=== PATIENT | female | born 1935 | race Caucasian/White ===

== ENCOUNTER 2016-09-01 11:02 | Outpatient (CLI) | payer MEDICARE, BC ==
[~2016-09-01] VITALS: Ht 157.6 cm; Wt 77.7 kg
[~2016-09-01 11:02] MED LIST: COLESTID 1GM1 G PO; HCTZ 25MG25 MG PO; LEVOTHYROXINE0.05 M1 PO; LODINE400 MG PO; PRINIVIL10 MG PO; TYLENOL 8 HR PO
[2016-09-01] MEDS ORDERED: SYNTHROID0.05 MG/TA PO (11:42)
[2016-09-01] MEDS ORDERED: HCTZ12.5TAB PO (11:42)
[2016-09-01] MEDS ORDERED: MULTI VITAMINS1 TAB PO (11:43)
[2016-09-01] MEDS ORDERED: INFANTS AQU400 IU/ML PO (11:43)
[2016-09-01] MEDS ORDERED: NATURE'S BLE1000 MCG PO (11:44)
[2016-09-01] MEDS ORDERED: OSCAL 500 TAB500 MG PO (11:45)
[2016-09-01] MEDS ORDERED: TYLENOL 500MG500 MG PO (11:46)
[2016-09-01 11:50] VITALS: BP 125/65; PULSE 80; TEMP 98.4
== END 2016-09-01 14:31 | disposition home or self-care (01) ==
LOC: COL.RAD 11:02
DX: Z53.9 Procedure and treatment not carried out, unspecified reason (principal)

== ENCOUNTER 2019-04-26 11:54 | Inpatient (IN) | payer MEDICARE, BC ==
[~2019-04-26] VITALS: Ht 160 cm; Wt 77.0 kg
[~2019-04-26 11:54] MED LIST changes: +HCTZ12.5TAB PO; +INFANTS AQU400 IU/ML PO; +MULTI VITAMINS1 TAB PO; +NATURE'S BLE1000 MCG PO; +OSCAL 500 TAB500 MG PO; +SYNTHROID0.05 MG/TA PO; +TYLENOL 500MG500 MG PO
[2019-04-26 12:48] LABS: BASO % 0.3 % (0.0-2.0); EOS % 0.3 % (0-4.0); GRAN # 2.6 (1.4-6.5); GRAN % 80.2 % (42.2-75.2); HEMATOCRIT 43.1 % (37.0-47.0); HEMOGLOBIN 13.6 g/dl (12.5-16.0); LYMPH # 0.5 (1.2-3.4); LYMPH % 14.6 % (20.0-51.0); MEAN CELL VOLUME 80 fl (80.0-100.0); MEAN CORPUSCULAR HEMOGLOBIN 25 pg (27.0-31.0); MEAN CORPUSCULAR HGB CONC 32 g/dl (33.0-37.0); MEAN PLATELET VOLUME 9.3 fl (7.4-10.4); MONO # 0.1 (0.1-0.6); MONO % 4.3 % (1.7-9.3); PLATELET COUNT 359 K/mm3 (130-400); REDCELL DISTRIBUTION WIDTH-CV 15.9 % (11.5-14.5)
[2019-04-26 13:01] LABS: ALBUMIN 3.3 gm/dL (3.5-5.0); BILIRUBIN,TOTAL 1.3 mg/dL (0.0-1.0); C-REACTIVE PROTEIN 1.2 mg/dL (0.0-0.9); CALCIUM 7.8 mg/dL (8.4-10.2); CREATININE, serum 0.85 (0.52-1.25); POTASSIUM 3.3 mmol/L (3.4-5.0); TOTAL PROTEIN 5.7 gm/dL (6.4-8.2)
[2019-04-26 18:30] VITALS: BP 97/52; PULSE 102; TEMP 98.3
--- NOTE | 2019-04-26 20:22 | NUR ---
Resting in bed. Assessment complete. Lungs clear. Heart sounds normal. Bowels active x4. Pulses strong throughout. Bilateral lower leg edema +1. Reports "a little" ABD pain at this time. No diarrhea since start of shift. IV left wrist/forearm area infusing without complications. All questions answered. Unable to give home medications. Will contact . Denies other needs at this time. Call light in reach.
[2019-04-26 21:25] VITALS: BP 76/58; PULSE 108
[2019-04-26 22:10] VITALS: BP 106/82; PULSE 102; TEMP 97.7
--- NOTE | 2019-04-26 22:10 | NUR ---
Patient arrived to ICU room 1 via medical bed. Patient was transferred to ICU bed and vitals were obtained. Initial vitals were within normal limits, however respiratory rate was 29. Patient arrived with a NS bolus hanging. Patient is in obvious pain, as she is gaurding abdomen and grimacing. Patient verbally confirmed pain present. Bedside report was provided by HAROLDO Knox.
--- NOTE | 2019-04-26 22:57 | NUR ---
2124: SPICE MILLER reports blood pressure 70s/40s to 60s. Manually taken at 76/58 with a apical pulse of 108. Patient reports ABD pain and weakness at this time. 2127: Notified JOHANA Marie. Reported patient symptoms. Fluid bolus x1 liter. Requested baseline EKG and telemetry, okay to order. 2134: Started fluid bolus and telemetry. Respiratory in room for EKG. Patient reports "I just feel so bad." Patient having increased left lower ABD tenderness at this time. Remained in room with patient for EKG. 2144: Cynthia in to see patient. Ordered transfer to ICU, stat labs, and stat CT ABD w/o. Patient transported to CT at this time. CT aware. 2155: Arrived at CT. 2204: Arrived to ICU. Patient transferred to ICU bed. 2219: Provided report to HAROLDO Mc while in ICU. Patient remained alert and orientated with compliants of ABD during transfer.
--- NOTE | 2019-04-26 23:08 | NUR ---
Attempted to contact regarding patient status/transfer to ICU and obtain med. red. No answer and unable to leave voicemail at this time.
--- NOTE | 2019-04-26 23:30 | NUR ---
Patient left for surgery at this time.
[2019-04-27] VITALS (1204 sets, daily range): BP systolic 92–126; BP diastolic 50–83; PULSE 98–121; TEMP 97.4–98.5; O2SAT 64–100
--- NOTE | 2019-04-27 02:30 | NUR ---
Patient returns from surgery at this time. Patient has leonard catheter, a LSC triple lumen central line, midline incision to abdomen that is dressed with guaze and clean, dry, and intact, as well as with ileostomy to the right lower abdomen. Patient's vitals are obtained upon arrival and are within normal limits. Patient has received an epidural REWRITE EDITOR that is running at 4 ml/hr per anesthesiologist. Patient is obviously experiencing discomfort as she is grimicing and verbally complains of pain. Vitals were obtained at regular intervals for the first 30 minutes after returning from surgery. Vitals remained within normal limits, although the patient's pulse slightly elevated from the 90s into the low 100s. Hospitalist notified of patient's return. Will continue to monitor.
[2019-04-27 03:12] LABS: HEMATOCRIT 38.2 % (37.0-47.0); HEMOGLOBIN 11.9 g/dl (12.5-16.0); MEAN CELL VOLUME 81 fl (80.0-100.0); MEAN CORPUSCULAR HEMOGLOBIN 25 pg (27.0-31.0); MEAN CORPUSCULAR HGB CONC 31 g/dl (33.0-37.0); MEAN PLATELET VOLUME 9.4 fl (7.4-10.4); PLATELET COUNT 288 K/mm3 (130-400); RED BLOOD COUNT 4.73 M/mm3 (4.10-5.30); REDCELL DISTRIBUTION WIDTH-CV 15.9 % (11.5-14.5)
[2019-04-27 03:18] LABS: INR 1.5 (0.8-3.0); PROTHROMBIN TIME 17.6 SECONDS (9.7-12.8)
[2019-04-27 03:20] LABS: ANION GAP 7 mmol/L (7-16); BLOOD UREA NITROGEN 23 mg/dL (7-17); CALCIUM 6.6 mg/dL (8.4-10.2); CARBON DIOXIDE 21 mmol/L (22-30); CHLORIDE 107 mmol/L (98-107); CREATININE, serum 0.78 (0.52-1.25); GLUCOSE 108 mg/dL (74-106); POTASSIUM 3.6 mmol/L (3.4-5.0); SODIUM 135 mmol/L (137-145)
[2019-04-27 03:31] LABS: ARTERIAL BLD GAS O2 SATURATION 98.6 % (92-100); ARTERIAL BLD GAS TCO2 CT 18.5; ARTERIAL BLOOD GAS BASE EXCESS -9.1 (-2-2); ARTERIAL BLOOD GAS HCO3 17.3 meq/L (22-26); ARTERIAL BLOOD GAS PCO2 39.3 mmHg (35-45); ARTERIAL BLOOD GAS PO2 141.4 mmHg (80-100); ARTERIAL BLOOD GAS pH 7.26 (7.35-7.45)
[2019-04-27 03:32] LABS: TROPONIN-I < 0.012 ng/mL (0.000-0.035)
[2019-04-27 03:57] LABS: ANISOCYTOSIS 1+; HYPOCHROMIA 2+; LYMPHOCYTE 11 % (20.0-51.0); NEUTROPHILS 2 % (42.0-75.2); PLATELET ESTIMATE NORMAL (NORMAL)
[2019-04-27 03:58] LABS: BURR CELLS 2+; TOXIC GRANULATION PRESENT
[2019-04-27 03:59] LABS: OVALOCYTES 1+
--- NOTE | 2019-04-27 04:51 | NUR ---
Patient pulled out NG tube. Dr. Gutierrez notified. Requested that NG tube be left out. Will continue to monitor.
[2019-04-27 06:02] LABS: HEMATOCRIT 38.7 % (37.0-47.0); HEMOGLOBIN 11.9 g/dl (12.5-16.0); MEAN CELL VOLUME 81 fl (80.0-100.0); MEAN CORPUSCULAR HEMOGLOBIN 25 pg (27.0-31.0); MEAN CORPUSCULAR HGB CONC 31 g/dl (33.0-37.0); MEAN PLATELET VOLUME 9.3 fl (7.4-10.4); PLATELET COUNT 269 K/mm3 (130-400); RED BLOOD COUNT 4.78 M/mm3 (4.10-5.30); REDCELL DISTRIBUTION WIDTH-CV 15.9 % (11.5-14.5)
[2019-04-27 06:20] LABS: ALBUMIN 1.9 gm/dL (3.5-5.0); CALCIUM 6.5 mg/dL (8.4-10.2); CREATININE, serum 0.77 (0.52-1.25); MAGNESIUM 1.4 mg/dL (1.6-2.3); POTASSIUM 3.7 mmol/L (3.4-5.0); TOTAL PROTEIN 3.8 gm/dL (6.4-8.2)
[2019-04-27 06:34] LABS: BAND 5 % (0-10); LYMPHOCYTE 5 % (20.0-51.0); NEUTROPHILS 87 % (42.0-75.2); PLATELET ESTIMATE NORMAL (NORMAL)
[2019-04-27 06:35] LABS: ANISOCYTOSIS 1+; BURR CELLS 1+; C-REACTIVE PROTEIN 16.8 mg/dL (0.0-0.9); HYPOCHROMIA 2+; OVALOCYTES 1+; TOXIC GRANULATION PRESENT
--- NOTE | 2019-04-27 07:00 | NUR ---
BEDSIDE REPORT RECEIVED FROM HAROLDO BAEZ. CARE TAKEN OVER AT THIS TIME.
--- NOTE | 2019-04-27 07:10 | NUR ---
Bedside report given to HAROLDO Mcgovern.
--- NOTE | 2019-04-27 08:33 | NUR ---
At approx. 0430, patient's pressures began to decrease and HR became elevated into the 1-teens. Hospitalist was notified, who then updated [facility]. A 1000mL bolus was ordered and administered. Pressures and HR responded appropriately. At approx. 0620, again the patient's pressures began to decrease with an elevated HR. A CVP line was initiated, with the initial reading being 9. A second 1000mL bolus was ordered and administered at 0635. Pressures and HR responded well and returned to normal ranges. CVP reading increased to 12-13. Will continue to monitor and evaluate patient.
--- NOTE | 2019-04-27 09:30 | NUR ---
ORDERS RECEIVED FOR 1 LITER LR BOLUS D/T HYPOTENSION. DR. KAMILA DAVIDSON HERE TO SEE PATIENT. OTHER ORDERS BEING PLACED.
--- NOTE | 2019-04-27 10:30 | NUR ---
BLOOD PRESSURE MUCH IMPROVED WITH THE HELP OF THE LR BOLUS. PATIENT RESTING IN BED WITH NO COMPLAINTS. WILL CONTINUE TO MONITOR.
--- NOTE | 2019-04-27 13:00 | NUR ---
, SYLVIA, HERE TO SEE PATIENT.
--- NOTE | 2019-04-27 13:30 | NUR ---
DR. ARRIETA HERE TO SEE PATIENT
--- NOTE | 2019-04-27 14:00 | NUR ---
ILEOSTOMY DEVICE CHANGED AT THIS TIME D/T LEAK. MIDLINE INCISION CLEANED AND REDRESSED AT THIS TIME WELL.
--- NOTE | 2019-04-27 16:26 | NUR ---
FINANCIAL ANALYSIS ADVISOR student met with the to discuss a discharge plan. The patient lives in [place] with her , Scott. The patient reports she does not use DME and is independent with ADLs. The patient's PCP is Dr. Cancino and patient receive medications from [facility]. The patient does not have advanced directives in the EMR but reports they are completed. The patient may need post acute rehab. The patient wanted to discuss it with her . FINANCIAL ANALYSIS ADVISOR student contacted the patient's , Scott. The first choice is [facility] and second choice is [facility]. FINANCIAL ANALYSIS ADVISOR student faxed updates and contacted both facilities. A patient choice form is in the patient's chart. FINANCIAL ANALYSIS ADVISOR student requested Scott bring DPOA-HC paperwork to put in the patient's chart. director of career services will continue to follow.
--- NOTE | 2019-04-27 16:30 | NUR ---
CLEAR ENSURE OFFERED TO THE PATIENT. BLOOD GLUCOSE CONTINUES TO RUN IN THE 70s. SHE IS ENCOURAGED TO DRINK THIS ALONG WITH THE ICE WATER SHE WANTED. SHE IS AGREEABLE TO DRINKING THE ENSURE.
--- NOTE | 2019-04-27 18:30 | NUR ---
, SYLVIA, HERE AGAIN TO SEE PATIENT. HE BRINGS DPOA PAPERWORK WITH HIM. COPIES MADE AND PLACED IN CHART.
--- NOTE | 2019-04-27 18:40 | NUR ---
EICU CALLED REGARDING LOW URINE OUTPUT, PERSISTENTLY ELEVATED HR OF 115. UPDATE ON OVERALL SITUATION GIVEN, INCLUDING BOLUSES GIVEN LAST NIGHT AND TODAY. WILL AWAIT ANY ORDERS.
--- NOTE | 2019-04-27 19:00 | NUR ---
BEDSIDE REPORT GIVEN TO HAROLDO PANTOJA. PATIENT HAS ELEVATED HR OF 180 AT THIS TIME. IT IS SUSTAINED BETWEEN 160-180 FOR APPROXIMATELY 20 OR SO SECONDS. PATIENT IS COACHED ON PERFORMING A VAGAL MANEUVER AND SHE RETURNS TO A SINUS TACHYCARDIA WITH RATE OF 115 ON AVERAGE. WILL CALL EICU WITH THIS EVENT.
--- NOTE | 2019-04-27 19:00 | NUR ---
Bedside report received from HAROLDO Mcgovern. Ostomy and surgical site assessed. Transfer of care at this time.
--- NOTE | 2019-04-27 19:05 | NUR ---
Patient has a rhythm change at this time to SVT with a rate between 160-180 bpm. Patient performs vagal maneuver and converts back to sinus rhythm. Patient was asymptomatic and BP remained stable and WNL.
--- NOTE | 2019-04-27 19:15 | NUR ---
RADHA STEWART APRN CALLED WITH CONSULT FOR OSTOMY TEACHING. SHE STATES SHE WILL BE HERE THIS EVENING TO SPEAK WITH AND PATIENT
--- NOTE | 2019-04-27 20:00 | NUR ---
Patient awake laying in bed with , Louis, at bedside. Patient complains of pain rated 3/10 in her abdomen. Educated patient on pushing her income tax return preparer button when she is hurting. Patient is alert and partially oriented. Unable to tell month, day or reason for being here. Assessment complete. Lungs are clear bilaterally with diminished bases. HR and rhythm are regular with normal S1 and S2 heard. Bowel sounds in upper quads are audible with lower quads being hypoactive. Patient is passing gas through the ostomy as well as dark green liquid stool with mucus. Pulses are palpable in all extremities. Surgical dressing remains clean and dry. No evidence of leakage around ileostomy. Patient has no further needs at this time. Will continue to monitor. Call light within reach.
--- NOTE | 2019-04-27 20:35 | NUR ---
Jl, ostomy nurse, at the bedside at this time. Unable to do teaching as is no longer present and patient is unable to retain information. She will contact tomorrow to set up time for Tuesday for teaching.
[2019-04-28] VITALS (1017 sets, daily range): BP systolic 94–130; BP diastolic 49–68; PULSE 94–108; TEMP 97.4–98.1; O2SAT 64–100
--- NOTE | 2019-04-28 | NUR ---
Patient asleep but awakens easily. Patient is still confused and does not realise she has had surgery. No complaints of pain. Assessment complete with no changes from previous exam. Vitals obtained and remain within normal limits. Patient's urine output has started to spanish moss picker since bolus. No further needs at this time. Will continue to monitor. Call light within reach.
--- NOTE | 2019-04-28 04:00 | NUR ---
Patient asleep and awakens easily. No complaints of pain. She remains confused, but pleasant. Assessment complete with only change being that ileostomy output is now more brown than green as it was previously in the shift. Vitals obtained and remain stable. Patient's urine output continues to increase slowly. Will continue to monitor. Call light within reach.
[2019-04-28 04:47] LABS: MEAN CELL VOLUME 81 fl (80.0-100.0); MEAN CORPUSCULAR HGB CONC 32 g/dl (33.0-37.0); MEAN PLATELET VOLUME 9.9 fl (7.4-10.4); PLATELET COUNT 172 K/mm3 (130-400); RED BLOOD COUNT 3.74 M/mm3 (4.10-5.30); REDCELL DISTRIBUTION WIDTH-CV 16.5 % (11.5-14.5)
[2019-04-28 04:51] LABS: HEMATOCRIT 30.2 % (37.0-47.0); HEMOGLOBIN 9.6 g/dl (12.5-16.0); MEAN CORPUSCULAR HEMOGLOBIN 26 pg (27.0-31.0)
[2019-04-28 04:57] LABS: ALBUMIN 2.1 gm/dL (3.5-5.0); BILIRUBIN,TOTAL 0.5 mg/dL (0.0-1.0); CALCIUM 7.4 mg/dL (8.4-10.2); CREATININE, serum 0.76 (0.52-1.25); MAGNESIUM 2.4 mg/dL (1.6-2.3); POTASSIUM 3.5 mmol/L (3.4-5.0); TOTAL PROTEIN 4.1 gm/dL (6.4-8.2)
[2019-04-28 06:07] LABS: BAND 47 % (0-10); BURR CELLS 2+; LYMPHOCYTE 7 % (20.0-51.0); NEUTROPHILS 40 % (42.0-75.2); OVALOCYTES 2+
[2019-04-28 06:08] LABS: HYPOCHROMIA 1+; PLATELET ESTIMATE NORMAL (NORMAL)
--- NOTE | 2019-04-28 07:25 | NUR ---
Report recieved from Mary ZARCO. Patient awakens easily, alert but confused. Knows date and person, doesn't know location until told she's in the hospital. Call light at side, Epidural CLINICAL DOCUMENT IMPROVEMENT EDUCATOR button at side.
--- NOTE | 2019-04-28 07:25 | NUR ---
Bedside report given to HAROLDO Espinoza
--- NOTE | 2019-04-28 14:39 | NUR ---
F/U: SW met with patient as request. Patient is still unsure of where she wishes to go, between [facility] or [facility]. Patient did requested for someone to speak with her Scott ([phone]), however this did not seem to be an adaquate number. This SW [facility], however had not seen the patient yet, and so could not secure placement. ELHAM faxed updated to both facilities as requested.
--- NOTE | 2019-04-28 18:19 | NUR ---
Zach Mcneill ENGRAVER COPPERPLATE here to see patient and check on epidural status. Increased epidural at this time to basal of 6ml/hr and a demand of 3ml/hr. Will follow up with patient in AM
--- NOTE | 2019-04-28 19:25 | NUR ---
Received bedside report from Olga Donalsdon RN. Pt resting in bed with corrective eye glasses in place. Denies any current pain.
--- NOTE | 2019-04-28 19:30 | NUR ---
Bedside report given to Irene ZARCO. Epidural reviewed. Medications verified. Patient denies needs, denies pain at this time.
[2019-04-29] VITALS (460 sets, daily range): BP systolic 125–136; BP diastolic 58–78; PULSE 84–104; TEMP 97.6–100.1; O2SAT 89–97
[2019-04-29 05:13] LABS: MEAN CELL VOLUME 79 fl (80.0-100.0); MEAN CORPUSCULAR HGB CONC 32 g/dl (33.0-37.0); MEAN PLATELET VOLUME 10.1 fl (7.4-10.4); PLATELET COUNT 169 K/mm3 (130-400); RED BLOOD COUNT 3.56 M/mm3 (4.10-5.30); REDCELL DISTRIBUTION WIDTH-CV 17.1 % (11.5-14.5)
[2019-04-29 05:18] LABS: HEMOGLOBIN 8.9 g/dl (12.5-16.0); MEAN CORPUSCULAR HEMOGLOBIN 25 pg (27.0-31.0)
[2019-04-29 05:28] LABS: ALBUMIN 2.1 gm/dL (3.5-5.0); BILIRUBIN,TOTAL 0.6 mg/dL (0.0-1.0); CALCIUM 7.2 mg/dL (8.4-10.2); CREATININE, serum 0.49 (0.52-1.25); POTASSIUM 3.4 mmol/L (3.4-5.0); TOTAL PROTEIN 4.1 gm/dL (6.4-8.2)
[2019-04-29 05:44] LABS: ANISOCYTOSIS 1+; HYPOCHROMIA 2+; LYMPHOCYTE 4 % (20.0-51.0); NEUTROPHILS 91 % (42.0-75.2); PLATELET ESTIMATE NORMAL (NORMAL)
[2019-04-29 05:45] LABS: BURR CELLS 1+; MICROCYTOSIS 1+; OVALOCYTES 1+
--- NOTE | 2019-04-29 06:35 | NUR ---
Report recieved from HAROLDO Bonilla. Patient resting in bed and denies pain at this time. Epidural site with dried drainage to insertion site. Distal loop of epidural tubing uncovered secondary to occlusive dressing being rolled up. Site cleaned and reinforced with tegaderm. Midline insicion CDI and stoma beefy and red and without complication. MIVF running at ordered rate, amiodarone running at 0.5mg/min and potassium replacement running also as ordered. Care assumed.
--- NOTE | 2019-04-29 06:35 | NUR ---
Report provided to Laura Henderson RN.
--- NOTE | 2019-04-29 08:50 | NUR ---
Dr. Mark rounds at this time. Orders as entered CPOE.
--- NOTE | 2019-04-29 09:01 | NUR ---
Dr. Rueda rounds at this time. VORB to start PO amiodarone as entered. Care ongoing.
--- NOTE | 2019-04-29 11:39 | NUR ---
hired worker faxed medical updates to [facility] ([phone][facility] ([phone][facility] including facesheet, nursing/progress notes/cardiology notes, and medications.
--- NOTE | 2019-04-29 12:57 | NUR ---
Patient transported to surgical room 343 via with all belongings sent. HAROLDO Trujillo transfers patient. Prior report called to HAROLDO Rossi.
--- NOTE | 2019-04-29 15:00 | NUR ---
SEE SHIFT ASSESSMENT NOTE.
--- NOTE | 2019-04-29 19:00 | NUR ---
REPORT RECEIVED FROM HAROLDO AVILA; CARE OF PT ASSUMED AT THIS TIME. BEDSIDE ROUNDS COMPLETED, PT DENIES NEEDS AT THIS TIME. CALL LIGHT WITHIN REACH.
--- NOTE | 2019-04-29 19:34 | NUR ---
REPORT GIVEN TO HAROLDO BELL.
--- NOTE | 2019-04-29 21:00 | NUR ---
PT AWAKE, ALERT, OX4 APPROPRIATELY AT THIS TIME. PT REPORTS BEING FORGETFUL AND HAS "TROUBLE WITH MEMORY." PT DENIES PAIN, HAS EPIDURAL INFUSING CURRENTLY. GOOD CSM TO BLE'S, WARM TO TOUCH. IVF INFUSING PER CENTRAL LINE TO L SUBCLAVIAN WITHOUT ISSUES, SITE WITHOUT REDNESS, EDEMA. PERIPHERAL SITES TO L AC AND L FA ALSO, SOME EDEMA TO L AC AREA WITHOUT REDNESS, PT DENIES TENDERNESS TO AREA. ILEOSTOMY TO RLQ INTACT WITH BEEFY RED STOMA, DRAINAGE IS YELLOW COLORED AND SEEDY, EMPTIED 350ML AT THIS TIME. PT TAMERA ANY PAIN TO AREA. SURGICAL INCISION MIDLINE, VERTICAL TO ABDOMEN IS COVERED WITH GAUZE DRESSING AND HAS SMALL AMOUNT OF DRIED DARK DRAINAGE NOTED, NO ACTIVE DRAINAGE. PT REPOSITIONED TO LEFT SIDE WITH PILLOW PLACED UNDER R HIP AND PILLOW UNDER HEELS TO FLOAT OFF BED. PT AGREEABLE TO POSITION CHANGES. WEISS CATHETER IN PLACE, DRAINING YELLOW, CLEAR URINE. PT DENIES ANY NEEDS AT THIS TIME. CALL LIGHT WITHIN REACH.
--- NOTE | 2019-04-29 22:45 | NUR ---
CALL RECIEVED FROM ICU REGARDING PT HR TACHY UP TO 140'S. CHECKED ON PT IN ROOM, SLEEPING IN BED. AWAKENED PT EASILY, APICAL PULSE FOUND TO BE 118BPM CURRENTLY. PT DENIES ANY CP, SOB, PALPITATIONS, OR RACING OF HEART, DENIES PAIN. INSTRUCTED PT TO CALL FOR RN IF STARTS TO FEEL SYMPTOMS. PT IS AGREEABLE. CALL LIGHT WITHIN REACH.
[2019-04-30] VITALS (7 sets, daily range): BP systolic 101–132; BP diastolic 52–69; PULSE 87–983; TEMP 97.3–100.1
[2019-04-30 05:44] LABS: BASO % 0.1 % (0.0-2.0); EOS % 0.5 % (0-4.0); GRAN # 7.3 (1.4-6.5); GRAN % 88.6 % (42.2-75.2); LYMPH # 0.3 (1.2-3.4); LYMPH % 3.3 % (20.0-51.0); MEAN CELL VOLUME 79 fl (80.0-100.0); MEAN CORPUSCULAR HGB CONC 33 g/dl (33.0-37.0); MEAN PLATELET VOLUME 9.4 fl (7.4-10.4); MONO # 0.6 (0.1-0.6); MONO % 6.7 % (1.7-9.3); PLATELET COUNT 140 K/mm3 (130-400); RED BLOOD COUNT 3.37 M/mm3 (4.10-5.30); REDCELL DISTRIBUTION WIDTH-CV 17.2 % (11.5-14.5)
[2019-04-30 05:46] LABS: HEMATOCRIT 26.5 % (37.0-47.0); HEMOGLOBIN 8.6 g/dl (12.5-16.0); MEAN CORPUSCULAR HEMOGLOBIN 26 pg (27.0-31.0)
[2019-04-30 05:59] LABS: BILIRUBIN,TOTAL 0.7 mg/dL (0.0-1.0); CREATININE, serum 0.47 (0.52-1.25); MAGNESIUM 1.7 mg/dL (1.6-2.3); POTASSIUM 3.6 mmol/L (3.4-5.0); TOTAL PROTEIN 4.1 gm/dL (6.4-8.2)
--- NOTE | 2019-04-30 06:10 | NUR ---
PT HAS SLEPT WELL THROUGH THE NIGHT WITH NO C/O PAIN OR OTHER ISSUES. REPOSITIONED Q2 HOURS WITH PILLOWS PLACED FOR COMFORT AND HEELS FLOATED. NO SKIN ISSUES NOTED. WEISS CATHETER DRAINING CLEAR RODRIGUEZ URINE. SCD'D IN PLACE BILAT. ILEOSTOMY HAS BEEN DRAINING LOOSE YELLOW, SEEDY STOOL AND APPEARS TO HAVE FLATUS NOTED IN BAG. DRESSING TO ABDOMEN REMAINS CDI. IVF INFUSING TO CENTRAL LINE WITHOUT ISSUE. TEMPERATURE SLIGHTLY ELEVATED THIS AM AT 100.1 DEGREES, PT DENIES FEELING BAD. DENIES OTHER NEEDS. CALL LIGHT WITHIN REACH.
--- NOTE | 2019-04-30 07:03 | NUR ---
REPORT GIVEN TO HAROLDO ELLIOTT; BEDSIDE ROUNDS COMPLETED, PT DENIES NEEDS. CALL LIGHT WTIHIN REACH.
--- NOTE | 2019-04-30 08:30 | NUR ---
Patient in bed resting. Alert and oriented x 3. Shift assessment complete. Midline incision with gauze scant drainage present,appears old. Ostomy to right quadrant appliance intact, having some liquid stool output. Stoma appears beefy red. Central line to left subclavian without difficulties. Denies pain or further needs at this time.
--- NOTE | 2019-04-30 10:42 | NUR ---
Notified Cecilia VAUGHN of increased HR in 160's
--- NOTE | 2019-04-30 11:39 | NUR ---
Blanche, ostomy nurse in with patient
--- NOTE | 2019-04-30 11:42 | NUR ---
Notified Dr. Mark of increased HR at 160's
[2019-04-30 13:29] LABS: COLLECTION METHOD CLEAN CATCH
--- NOTE | 2019-04-30 13:36 | NUR ---
Javed from [facility] reports they can accept the patient for a [facility] stay. ELHAM informed the patient and attempted to contact the patient's . Scott, . ELHAM will attempt at a later time. ELHAM will continue to follow.
--- NOTE | 2019-04-30 13:45 | NUR ---
ELHAM faxed updates to Javed at [facility]. ELHAM will continue to follow.
--- NOTE | 2019-04-30 13:48 | NUR ---
Patient's , Scott talley#
[2019-04-30 13:57] LABS: MUCOUS Present /lpf; PH 5 (5-8); SQUAMOUS EPITHELIAL 0-2 /hpf; URINE APPEARANCE Hazy; URINE BACTERIA None Seen /hpf; URINE BILIRUBIN Negative (NEGATIVE); URINE BLOOD 3+ (NEGATIVE); URINE COLOR Yellow; URINE GLUCOSE Negative (NEGATIVE); URINE KETONE Negative (NEGATIVE); URINE LEUKOCYTE ESTERASE Negative (NEGATIVE); URINE NITRATE Negative (NEGATIVE); URINE PROTEIN(semi-quant) 1+ (NEGATIVE); URINE RBC >50 /hpf; URINE UROBILINOGEN Negative (NEGATIVE); URINE WBC 0-2 /hpf
--- NOTE | 2019-04-30 14:05 | NUR ---
Notified Cecilia VAUGHN, patients HR is 140's while working with physical therapy. Now decreased to 112 while sitting in recliner.
--- NOTE | 2019-04-30 15:39 | NUR ---
Notified Cecilia VAUGHN, patients HR increased to 150's
--- NOTE | 2019-04-30 16:25 | NUR ---
Notified Cecilia corral. Patient HR in 160's. Attempted to contact cardiology.
--- NOTE | 2019-04-30 16:30 | NUR ---
Discontinued leonard catheter, kyung care provided. Patient tolerated procedure well. Assisted patient to bed. Denies pain or further needs at this time.
--- NOTE | 2019-04-30 18:59 | NUR ---
Patient has done well throughout the day. Epidural and leonard catheter out. Denies pain at this time. Continues to have good output from ostomy. Denies further needs at this time. Reprted off to paralegal legal secretary.
--- NOTE | 2019-05-01 04:13 | NUR ---
Patient has rested well throughout the night. Denies any pain. No PRN medication given this shift. Ileostomy appliance had a leak, so this was changed at the beginning of the shift. No leaks apparent at this time. Good output noted from ileostomy. Will continue to monitor patient.
[2019-05-01 06:00] VITALS: BP 115/63; PULSE 85; TEMP 97.6
[2019-05-01 06:19] LABS: MEAN CELL VOLUME 79 fl (80.0-100.0); MEAN CORPUSCULAR HGB CONC 32 g/dl (33.0-37.0); MEAN PLATELET VOLUME 10.1 fl (7.4-10.4); PLATELET COUNT 129 K/mm3 (130-400); RED BLOOD COUNT 3.63 M/mm3 (4.10-5.30); REDCELL DISTRIBUTION WIDTH-CV 17.6 % (11.5-14.5)
[2019-05-01 06:36] LABS: CALCIUM 7.1 mg/dL (8.4-10.2); CREATININE, serum 0.42 (0.52-1.25); MAGNESIUM 1.9 mg/dL (1.6-2.3); POTASSIUM 4.1 mmol/L (3.4-5.0)
[2019-05-01 06:58] LABS: HEMATOCRIT 28.8 % (37.0-47.0); HEMOGLOBIN 9.2 g/dl (12.5-16.0); MEAN CORPUSCULAR HEMOGLOBIN 25 pg (27.0-31.0)
[2019-05-01 07:00] VITALS: BP 109/75; PULSE 84; TEMP 97.8
[2019-05-01 07:29] LABS: BAND 1 % (0-10); EOSINOPHIL 2 % (0-4); LYMPHOCYTE 6 % (20.0-51.0); NEUTROPHILS 85 % (42.0-75.2); PLATELET ESTIMATE NORMAL (NORMAL)
[2019-05-01 07:30] LABS: ANISOCYTOSIS 2+
--- NOTE | 2019-05-01 08:30 | NUR ---
Patient in bed resting. BESSEMER CONVERTER OPERATOR student with patient. Ileostomy leaking, bed bath provided, Ostomy appliance changed out. Midline dressing soiled from ostomy, changed dressing. Denbo intact with edges well approximated. Patient Denies pain at this time. BLE edema noted, Assisted patient to recliner. SCDs to BLE. Central line to left subclavian without complications. Denies further needs at this time.
--- NOTE | 2019-05-01 09:17 | NUR ---
Shift assessment complete. Bilateral lower extremity edema present at +1. Fine crackles at base of lungs. Central line intact, INT intact on left wrist. Ileostomy changed this morning, dressing changed this morning. Pt. tolerated both well. Telemetry in place. No pain at this time
[2019-05-01 10:45] VITALS: BP 115/60; PULSE 95; TEMP 98.6
--- NOTE | 2019-05-01 11:19 | NUR ---
Report off to Mary ZARCO
[2019-05-01 16:13] VITALS: BP 113/64; PULSE 85; TEMP 98.2
[2019-05-01] MEDS ORDERED: PACERONE400 MG PO (17:54)
[2019-05-01] MEDS ORDERED: LOPRESSOR 225 MG/TAB PO (17:55)
[2019-05-01] MEDS ORDERED: TYLENOL 325MG325 MG PO (17:56)
[2019-05-01] MEDS ORDERED: NORCO 325 MG-51 TAB PO (17:57)
--- NOTE | 2019-05-01 19:06 | NUR ---
Patient has done well throughout the day. Patient continues to have good output from ostomy. SCDs on throughout the day, BLE elevated due to edema. Continues to deny pain. Denies further needs at this time. Reported off to review rn.
[2019-05-01 21:00] VITALS: BP 117/55; PULSE 85; TEMP 98
[2019-05-02] VITALS (7 sets, daily range): BP systolic 97–118; BP diastolic 56–70; PULSE 57–83; TEMP 97.8–98.5
--- NOTE | 2019-05-02 02:08 | NUR ---
Patient has rested well tonight. Denies any pain. Ileostomy appliance changed d/t it leaking. Output is moderate in size and green in color. Midline incision covered with gauze and CDI. Coccyx appears to be red, but blanchable. Patient assisted in repositioning. Noted to be incontinent of urine. Will continue to monitor patient.
--- NOTE | 2019-05-02 06:45 | NUR ---
Reported on to Mary ZARCO.
--- NOTE | 2019-05-02 07:00 | NUR ---
Shift assessment complete. Posterior tibial pulses audible with doppler. Central line intact, INT in place, ileostomy bag intact, small amount of green liquid stool noted, emptied bag. Crackles at base of lungs, upper lobes clear to auscultation. SCD's applied. Patient states no pain at this time. Patient shows good appetite.
[2019-05-02 08:47] LABS: MEAN CELL VOLUME 80 fl (80.0-100.0); MEAN CORPUSCULAR HGB CONC 32 g/dl (33.0-37.0); MEAN PLATELET VOLUME 10.2 fl (7.4-10.4); PLATELET COUNT 126 K/mm3 (130-400); RED BLOOD COUNT 3.57 M/mm3 (4.10-5.30); REDCELL DISTRIBUTION WIDTH-CV 17.8 % (11.5-14.5)
[2019-05-02 08:51] LABS: CALCIUM 7.2 mg/dL (8.4-10.2); CREATININE, serum 0.45 (0.52-1.25); HEMATOCRIT 28.6 % (37.0-47.0); MEAN CORPUSCULAR HEMOGLOBIN 25 pg (27.0-31.0)
[2019-05-02 10:02] LABS: BAND 27 % (0-10); NEUTROPHILS 55 % (42.0-75.2); OVALOCYTES 1+; PLATELET ESTIMATE NORMAL (NORMAL)
--- NOTE | 2019-05-02 11:10 | NUR ---
lime kiln worker helper attended clinical rounds. Patient signed IM. Patient has been accepted to skilled care at [facility], however, will not transfer today due to blood clot in the leg. Worker contacted patient's spouse and Javed at [facility] and advised of the above information.
--- NOTE | 2019-05-02 11:39 | NUR ---
Report off to Mary ZARCO.
--- NOTE | 2019-05-02 13:41 | NUR ---
Assited patient back to bed. Midline incision soiled from ostomy. Yoli care provided. Denies further needs at this time.
--- NOTE | 2019-05-02 19:52 | NUR ---
Patient has done well throughout the day. Edema to LLE noted this AM, reported to hospitalist. Ostomy continues to have good output throughout the day. Midline incision with joseph intact, edges well approximated. Continues to deny pain. Patient has been up to comode throughout the day, stating she feels too weak to walk into restroom, steady gait with one assist and walker. Tolerating diet without difficulties. Denies further needs at this time. Reported off to nursing faculty.
--- NOTE | 2019-05-03 01:34 | NUR ---
PATIENT DOING WELL THROUGHOUT NIGHT. DENIES PAIN. OSTOMY CONTINUES TO HAVE GOOD OUTPUT. APPLIANCE IS NOT SOILED AND IS HOLDING WELL. MIDLINE INCISION CDI. LLE IS SWOLLEN AND PAINFUL TO TOUCH. L SUBCLAVIAN CENTRAL LINE FLUSHED AND PATENT. NO FURTHER NEEDS AT THIS TIME. WILL CONTINUE TO MONITOR.
[2019-05-03 05:17] VITALS: BP 100/56; PULSE 76; TEMP 97.9
[2019-05-03 06:09] LABS: HEMOGLOBIN 10.2 g/dl (12.5-16.0); MEAN CELL VOLUME 80 fl (80.0-100.0); MEAN CORPUSCULAR HEMOGLOBIN 25 pg (27.0-31.0); MEAN CORPUSCULAR HGB CONC 31 g/dl (33.0-37.0); MEAN PLATELET VOLUME 9.8 fl (7.4-10.4); PLATELET COUNT 189 K/mm3 (130-400); REDCELL DISTRIBUTION WIDTH-CV 17.7 % (11.5-14.5)
[2019-05-03 06:15] LABS: HEMATOCRIT 32.6 % (37.0-47.0)
[2019-05-03 06:20] LABS: CALCIUM 7.4 mg/dL (8.4-10.2); CREATININE, serum 0.46 (0.52-1.25); POTASSIUM 4.2 mmol/L (3.4-5.0)
[2019-05-03 06:49] LABS: BAND 31 % (0-10); EOSINOPHIL 2 % (0-4); LYMPHOCYTE 11 % (20.0-51.0); MYELOCYTE 1 % (0-0); NEUTROPHILS 52 % (42.0-75.2)
[2019-05-03 06:50] LABS: ANISOCYTOSIS 1+; MICROCYTOSIS 1+; PLATELET ESTIMATE NORMAL (NORMAL)
[2019-05-03 07:42] VITALS: BP 107/61; PULSE 79; TEMP 97.4
--- NOTE | 2019-05-03 08:58 | NUR ---
Shift report received by outgoing RN
--- NOTE | 2019-05-03 10:00 | NUR ---
AND TEAM AT BEDSIDE TO PLACE LOOP RECORDER
[2019-05-03] MEDS ORDERED: AMOXICILLIN 8751 TAB PO (11:37)
[2019-05-03] MEDS ORDERED: ELIQUIS 5MG PO (11:38)
[2019-05-03] MEDS ORDERED: ULTRAM 50MG TAB50 MG PO (11:41)
[2019-05-03 12:34] VITALS: BP 107/61; PULSE 79; TEMP 97.4
[2019-05-03 13:23] VITALS: BP 104/71; PULSE 93; TEMP 97.3
--- NOTE | 2019-05-03 13:35 | NUR ---
PATIENT'S OSTOMY LEAKED AND GOT ONTO MIDLINE DRESSING. STUDENT NURSE AND INSTRUCTOR REJI AT BEDSIDE TO CHANGE MIDLINE, APPLY NEW OSTOMY APPLIANCE & DC' LEFT SUBCLAVIAN IV FOR PENDING TRANSFER.
[2019-05-03 13:46] VITALS: BP 107/61; PULSE 79; TEMP 97.4
[2019-05-03 13:53] VITALS: BP 107/61; PULSE 79; TEMP 97.4
--- NOTE | 2019-05-03 14:04 | NUR ---
Guest is resting comfortably in bed. Guest's stoma has been cleaned and new appliance in place. Call light and bedside table is within reach.
--- NOTE | 2019-05-03 14:09 | NUR ---
Wind Energy Engineer collaborated with Beatriz ZARCO and Javed from [facility] to establish transportation as patient will discharge to [facility] this afternoon. [facility] transportation will cook pickled meat patient at 3:30pm and ELHAM advised Beatriz ZARCO of this information. ELHAM notified patient's , Scott about discharge plan and he was in agreeance. ELHAM Tavarez notified patient of discharge plan and she was inagreeance. ELHAM faxed discharge orders to [facility].
--- NOTE | 2019-05-03 14:14 | NUR ---
LS TL removed per protocol. Pressure held for 10 minutes. Covered with folded 2 x 2. Covered with tagaderm.
--- NOTE | 2019-05-03 15:44 | NUR ---
PATIENT DISCHARGING VIA WC WITH [facility]. CALLED REPORT TO [facility] NURSE. SENT INFO PACKET WITH PATIENT. STUDENT NURSE AND INSTRUCTOR DC'D IV ACCESS AND COVERED SITE WITH GAUZE & TEGA. MIDLINE DRESSING AND OSTOMY BAG CHANGED, WAFER INTACT. TELE DC'D. PATIENT DISCHARGED.
== END 2019-05-03 15:44 | DRG 853 ==
LOC: COL.ER 11:54 → SURG 16:06 → MEDICAL 16:06 → ICU 22:10 → SURG 04-29 12:55
PROVIDERS: Family Medicine; Hospitalist; Internal Medicine Critical Care Medicine; Nurse Practitioner Family; Physician Assistant; Student in an Organized Health Care Education/Training Program; ADMIT Internal Medicine
PROC: 0DNU0ZZ Release Omentum, Open Approach (ICD-10-PCS; 2019-04-27)
PROC: 0DTF0ZZ Resection of Right Large Intestine, Open Approach (ICD-10-PCS; 2019-04-27)
PROC: 0D1B0Z4 Bypass Ileum to Cutaneous, Open Approach (ICD-10-PCS; 2019-04-27)
PROC: 05H633Z Insertion of Infusion Device into Left Subclavian Vein, Percutaneous Approach (ICD-10-PCS; 2019-04-27)
PROC: 0JH632Z Insertion of Monitoring Device into Chest Subcutaneous Tissue and Fascia, Percutaneous Approach (ICD-10-PCS; principal; 2019-05-03)
DX: A41.9 Sepsis, unspecified organism (principal); R65.21 Severe sepsis with septic shock; K63.1 Perforation of intestine (nontraumatic); E87.1 Hypo-osmolality and hyponatremia; K56.7 Ileus, unspecified; K52.0 Gastroenteritis and colitis due to radiation; I82.402 Acute embolism and thrombosis of unspecified deep veins of left lower extremity; T50.8X5A Adverse effect of diagnostic agents, initial encounter; E87.6 Hypokalemia; D50.9 Iron deficiency anemia, unspecified; E83.42 Hypomagnesemia; E83.51 Hypocalcemia; E03.9 Hypothyroidism, unspecified; R00.0 Tachycardia, unspecified; I48.0 Paroxysmal atrial fibrillation; F03.90 Unspecified dementia, unspecified severity, without behavioral disturbance, psychotic disturbance, mood disturbance, and anxiety; I10 Essential (primary) hypertension; M85.80 Other specified disorders of bone density and structure, unspecified site; Z90.710 Acquired absence of both cervix and uterus; Z85.3 Personal history of malignant neoplasm of breast; Z92.3 Personal history of irradiation; Z88.2 Allergy status to sulfonamides
CPT/HCPCS: 99222-AI; 99232-AI; 99233-AI; 99239; A4314; A9284; C1751; C1764; J0282; J0610; J1650; J1956; J2185; J2270; J2370; J2405; J2543; J3010; J3475; J3480; J7030; J7050; J7060; J7120; P9047; Q9967

== ENCOUNTER → 2019-05-29 | Outpatient (CLI) | payer MEDICARE, BC ==
[~2019-05-29] MED LIST changes: +AMOXICILLIN 8751 TAB PO; +ELIQUIS 5MG PO; +LOPRESSOR 225 MG/TAB PO; +NORCO 325 MG-51 TAB PO; +PACERONE400 MG PO; +TYLENOL 325MG325 MG PO; +ULTRAM 50MG TAB50 MG PO
== END ==
LOC: ZLAB.STJ 10:02
DX: E03.9 Hypothyroidism, unspecified (principal)

== ENCOUNTER → 2019-06-04 | Outpatient (CLI) | payer MEDICARE, BC ==
[~2019-06-04] MED LIST changes: +CALCIUM 600 PLU1 TAB PO; +VITAMIN C500 MG PO
== END ==
LOC: COL.RAD 07:50
DX: R63.4 Abnormal weight loss (principal); Z98.890 Other specified postprocedural states; Z90.49 Acquired absence of other specified parts of digestive tract
CPT/HCPCS: Q9967

== ENCOUNTER 2019-06-06 10:39 | Inpatient (IN) | payer MEDICARE, BC ==
[2019-06-06] VITALS (223 sets, daily range): BP systolic 95–105; BP diastolic 60–65; PULSE 58–65; TEMP 97.7; O2SAT 75–100
[~2019-06-06] VITALS: Ht 157.5 cm; Wt 59.2 kg
[~2019-06-06 10:39] MED LIST changes: -CALCIUM 600 PLU1 TAB PO; -VITAMIN C500 MG PO
[2019-06-06 12:30] LABS: BASO % 0.2 % (0.0-2.0); GRAN # 13.3 (1.4-6.5); GRAN % 89.6 % (42.2-75.2); HEMOGLOBIN 14.4 g/dl (12.5-16.0); LYMPH # 0.6 (1.2-3.4); LYMPH % 4.1 % (20.0-51.0); MEAN CELL VOLUME 76 fl (80.0-100.0); MEAN CORPUSCULAR HEMOGLOBIN 25 pg (27.0-31.0); MEAN CORPUSCULAR HGB CONC 33 g/dl (33.0-37.0); MEAN PLATELET VOLUME 9.2 fl (7.4-10.4); MONO # 0.8 (0.1-0.6); MONO % 5.5 % (1.7-9.3); PLATELET COUNT 345 K/mm3 (130-400); RED BLOOD COUNT 5.81 M/mm3 (4.10-5.30); REDCELL DISTRIBUTION WIDTH-CV 15.6 % (11.5-14.5)
[2019-06-06 12:42] LABS: ALBUMIN 4.4 gm/dL (3.5-5.0); BILIRUBIN,TOTAL 1.2 mg/dL (0.0-1.0); CALCIUM 9.1 mg/dL (8.4-10.2); CREATININE, serum 2.48 (0.52-1.25); POTASSIUM 3.6 mmol/L (3.4-5.0); TOTAL PROTEIN 7.7 gm/dL (6.4-8.2)
[2019-06-06 12:55] LABS: TROPONIN-I 0.07 ng/mL (0.000-0.035)
[2019-06-06 13:03] LABS: MAGNESIUM 2.1 mg/dL (1.6-2.3)
[2019-06-06 13:35] LABS: COLLECTION METHOD CLEAN CATCH
[2019-06-06 13:54] LABS: HYALINE CAST >12 /lpf; MUCOUS Present /lpf; PH 5 (5-8); SQUAMOUS EPITHELIAL 0-2 /hpf; URINE APPEARANCE Hazy; URINE BACTERIA None Seen /hpf; URINE BILIRUBIN Negative (NEGATIVE); URINE BLOOD Negative (NEGATIVE); URINE COLOR Amber; URINE GLUCOSE Negative (NEGATIVE); URINE KETONE Negative (NEGATIVE); URINE LEUKOCYTE ESTERASE Negative (NEGATIVE); URINE NITRATE Negative (NEGATIVE); URINE PROTEIN(semi-quant) Negative (NEGATIVE); URINE UROBILINOGEN Negative (NEGATIVE)
--- NOTE | 2019-06-06 17:35 | NUR ---
Called Dr Tucker regarding increased troponin, new orders for IV amio recevied.
[2019-06-06] MEDS ORDERED: VITAMIN C500 MG PO (17:44)
[2019-06-06] MEDS ORDERED: CALCIUM 600 PLU1 TAB PO (17:45)
[2019-06-06] MEDS ORDERED: PACERONE400 MG PO (17:45)
[2019-06-06] MEDS ORDERED: TYLENOL 325MG325 MG PO (17:46)
[2019-06-06] MEDS ORDERED: LOPRESSOR 225 MG/TAB PO (17:46)
--- NOTE | 2019-06-06 17:46 | NUR ---
Vancomycin Initial Dosing Pharmacy Note Ordering provider: Sravanthi Watson W., MD Indication/duration: SEPSIS / 7 DAYS Relevant comorbidities: SMALL BOWEL PERF ONE MONTH AGO/ILEOSTOMY LABS: SCR 2.48/CRCL~13 BASE LINE SCR~0.7 Recommendation: 1GM Q12H Loading dose: Maintenance dose: 1 gram every 12 hours Trough goal: 15-20 ug/mL
[2019-06-06] MEDS ORDERED: SYNTHROID0.05 MG/TA PO (17:47)
[2019-06-06] MEDS ORDERED: MULTI VITAMINS1 TAB PO (17:47)
[2019-06-06] MEDS ORDERED: NATURE'S BLE1000 MCG PO (17:48)
[2019-06-06] MEDS ORDERED: ELIQUIS 5MG PO (17:48)
[2019-06-06] MEDS ORDERED: ULTRAM 50MG TAB50 MG PO (17:49)
--- NOTE | 2019-06-06 19:30 | NUR ---
Received report from HAROLDO Baca.
--- NOTE | 2019-06-06 19:32 | NUR ---
Report given to Jesusita ZARCO and care transfered.
[2019-06-06 21:21] LABS: CREATININE, serum 1.72 (0.52-1.25); SODIUM 126 mmol/L (137-145)
[2019-06-07] VITALS (715 sets, daily range): BP systolic 94–117; BP diastolic 52–66; PULSE 56–82; TEMP 97.5–98.3; O2SAT 58–100
[2019-06-07 07:21] LABS: BASO % 0.3 % (0.0-2.0); EOS # 0.2 (0.0-0.7); EOS % 1.9 % (0-4.0); GRAN # 7.6 (1.4-6.5); GRAN % 80.8 % (42.2-75.2); HEMOGLOBIN 12.8 g/dl (12.5-16.0); LYMPH % 10.3 % (20.0-51.0); MEAN CELL VOLUME 76 fl (80.0-100.0); MEAN CORPUSCULAR HEMOGLOBIN 25 pg (27.0-31.0); MEAN CORPUSCULAR HGB CONC 33 g/dl (33.0-37.0); MEAN PLATELET VOLUME 9.4 fl (7.4-10.4); MONO # 0.6 (0.1-0.6); MONO % 6.3 % (1.7-9.3); RED BLOOD COUNT 5.16 M/mm3 (4.10-5.30); REDCELL DISTRIBUTION WIDTH-CV 15.9 % (11.5-14.5)
[2019-06-07 07:22] LABS: ALANINE AMINOTRANSFERASE 82 U/L (9-52); ALBUMIN 3.3 gm/dL (3.5-5.0); ALKALINE PHOSPHATASE 100 U/L (50-136); AST,SGOT 62 U/L (15-37); BILIRUBIN,TOTAL 1.3 mg/dL (0.0-1.0); BLOOD UREA NITROGEN 71 mg/dL (7-17); CHOLESTEROL 99 mg/dL (120-200); CHOLESTEROL RISK RATIO 4.5; CREATININE, serum 1.49 (0.52-1.25); GLUCOSE 78 mg/dL (74-106); HDL CHOLESTEROL 22 mg/dL; LDL CHOLESTEROL 56 mg/dL; SODIUM 130 mmol/L (137-145); TRIGLYCERIDE 104 mg/dL
[2019-06-07 07:24] LABS: PLATELET COUNT 216 K/mm3 (130-400)
[2019-06-07 07:39] LABS: CHLORIDE 80 mmol/L (98-107); POTASSIUM 2.9 mmol/L (3.4-5.0); TROPONIN-I 0.066 ng/mL (0.000-0.035)
--- NOTE | 2019-06-07 08:16 | NUR ---
Report given to HAROLDO Espinoza, and HAROLDO Foster.
[2019-06-07 11:49] LABS: INR 1.2 (0.8-3.0); PROTHROMBIN TIME 14.5 SECONDS (9.7-12.8)
--- NOTE | 2019-06-07 12:00 | NUR ---
PATIENT RESTING COMFORT ABLE IN BED, WILL AMBULATE IN ROOM, OR USE OF RESTROOM WITH STAFF SUGGESTION ONLY NO VOLUNTEER RESPONSE FROM PATIENT
--- NOTE | 2019-06-07 13:44 | NUR ---
KARAN student met alexi the patient and the patient's /DPOA-HC, Scott to discuss a discharge plan. The patient was recently at [facility] for a [facility] stay. KARAN student presented the patient choice form to the patient and the patient's the first and only choice at this time is [facility]. The patient's /DPOA-HC signed the form. The patient has a walker. The patient's PCP is Dr. Cancino. The patient has advanced directives in the EMR. KARAN león faxed updates to Javed at [facility]. student services vice president will continue to follow.
--- NOTE | 2019-06-07 15:45 | NUR ---
after PICC placement chest x-ray reviewed catheter tip location noted. With sterile technique left upper arm PICC dressing change done with insertion site cleansed with ChloraPrep 1, catheter pulled back 5 cm to 4 cm marking on catheter, chlorhexidine impregnated disc applied, skin prep, StatLock, and Tegaderm applied. Primary care nurse informed.
--- NOTE | 2019-06-07 16:00 | NUR ---
PATIENT MOVES ABOUT BED EASILY, DENIES WEAKNESS OR DISINESS
--- NOTE | 2019-06-07 17:30 | NUR ---
PICC LINE BLEEDING UNDER DRESSING AT SITE, BLEEDING CONTROLLED REDRESSED, IN PICC LINE FASHION WITH MASK AND STERLE FIELD, WILL CONTINUE TO MONITOR AND REPORT TO ON COMING STAFF ABOUT BLEEDING
--- NOTE | 2019-06-07 19:35 | NUR ---
Bedside report received from HAROLDO Foster.
--- NOTE | 2019-06-07 20:00 | NUR ---
Patient awake and watching tv at this time. She is alert and partially oriented, can answer self and location correctly, but does not for year, month, and president. Assessment complete. Lungs are clear bilaterally with diminished bases. HR and rhythm are regular with normal S1 and S2 heard. Patient has active bowel sounds x4. Patient has Palpable peripheral pulses in all extremities. Patient has some clear green output from her ostomy. Stoma is beefy red. No complaints of pain. Has no current needs at this time. Will continue to monitor. Call light within reach.
[2019-06-08] VITALS (443 sets, daily range): BP systolic 92–120; BP diastolic 57–76; PULSE 64–74; TEMP 97.5–98.3; O2SAT 73–100
--- NOTE | 2019-06-08 | NUR ---
Patient sleeps between disturbances, but is mostly awake watching tv. Assisted patient up to bedside commode. Patient given a bath and linens changed. Assessment complete. No changes from previous exam. No complaints of pain. HAROLDO Segovia replaces PICC line dressing. No further needs at this time. Will continue to monitor. Call light within reach.
--- NOTE | 2019-06-08 01:15 | NUR ---
When getting patient back to bed from [facility], she was noted to have gross bleeding from her ostomy into the bag. Due to patient's increased hepxa levels we have been having problems controlling bleeding at her PICC site. Called and notified EICU, will continue to monitor for any continual or increased bleeding.
--- NOTE | 2019-06-08 04:00 | NUR ---
Patient awakens to name. Assessment complete. No changes from previous exams. Will continue to monitor. Call light within reach.
[2019-06-08 06:29] LABS: INR 1.3 (0.8-3.0); PROTHROMBIN TIME 14.8 SECONDS (9.7-12.8)
[2019-06-08 06:34] LABS: BASO % 0.2 % (0.0-2.0); EOS # 0.1 (0.0-0.7); GRAN # 8.2 (1.4-6.5); LYMPH # 0.7 (1.2-3.4); LYMPH % 6.8 % (20.0-51.0); MEAN CELL VOLUME 78 fl (80.0-100.0); MEAN CORPUSCULAR HGB CONC 32 g/dl (33.0-37.0); MEAN PLATELET VOLUME 9.3 fl (7.4-10.4); MONO # 0.6 (0.1-0.6); MONO % 6.5 % (1.7-9.3); PLATELET COUNT 198 K/mm3 (130-400); RED BLOOD COUNT 4.07 M/mm3 (4.10-5.30); REDCELL DISTRIBUTION WIDTH-CV 15.8 % (11.5-14.5)
[2019-06-08 06:36] LABS: ALBUMIN 2.7 gm/dL (3.5-5.0); BILIRUBIN,TOTAL 1.1 mg/dL (0.0-1.0); CALCIUM 7.3 mg/dL (8.4-10.2); TOTAL PROTEIN 5.1 gm/dL (6.4-8.2)
[2019-06-08 06:38] LABS: POTASSIUM 2.8 mmol/L (3.4-5.0)
[2019-06-08 06:45] LABS: HEMATOCRIT 31.8 % (37.0-47.0); HEMOGLOBIN 10.3 g/dl (12.5-16.0); MEAN CORPUSCULAR HEMOGLOBIN 25 pg (27.0-31.0)
--- NOTE | 2019-06-08 07:30 | NUR ---
Report received from Christy ZARCO and care resumed.
--- NOTE | 2019-06-08 07:55 | NUR ---
Bedside report given to HAROLDO Baca
[2019-06-08 08:44] LABS: IRON,SERUM 43 ug/dL (35-150)
[2019-06-08 08:53] LABS: TOTAL IRON BINDING CAPACITY 333 ug/dL (265-497)
--- NOTE | 2019-06-08 09:53 | NUR ---
Dr Watson in to see pt at this time.
--- NOTE | 2019-06-08 10:58 | NUR ---
KARAN león attended clinical rounds with the team. The patient is to start regular diet and move to medical floor this day. Javed from [facility] reports the patient will keep her room at [facility] for a couple of days. KARAN león faxed updates to Javed. services engineer will continue to follow.
--- NOTE | 2019-06-08 11:10 | NUR ---
Cardiology in to see pt at this time.
--- NOTE | 2019-06-08 15:11 | NUR ---
Report called to Kristy ZARCO on medical floor and pt taken by wheelchair to room 351.
--- NOTE | 2019-06-08 16:00 | NUR ---
PT ADMITTED TO FLOOR. SITTING IN RECLINER. NO NEEDS VOICED, IV INFUSING.
--- NOTE | 2019-06-09 01:38 | NUR ---
Patient up in recliner upon entering the room. Pleasant with staff. Fluids infusing to MINDI PICC. Ileostomy appliance and bag changed d/t appliance leaking. Stage II pressure ucler noted to left buttock. Old dressing removed and mepilex applied after site was cleansed with NS. Patient denies pain. Remains afebrile. Patient requires one assist for transfers. Noted to be continent of urine. Currently resting in bed. Will continue to monitor.
[2019-06-09 03:45] VITALS: BP 112/58; PULSE 98
[2019-06-09 07:48] LABS: BASO % 0.4 % (0.0-2.0); EOS # 0.2 (0.0-0.7); EOS % 2.9 % (0-4.0); GRAN # 6.4 (1.4-6.5); GRAN % 82.2 % (42.2-75.2); LYMPH # 0.6 (1.2-3.4); LYMPH % 7.5 % (20.0-51.0); MEAN CELL VOLUME 79 fl (80.0-100.0); MEAN CORPUSCULAR HGB CONC 31 g/dl (33.0-37.0); MEAN PLATELET VOLUME 9.5 fl (7.4-10.4); MONO # 0.5 (0.1-0.6); MONO % 6.6 % (1.7-9.3); PLATELET COUNT 173 K/mm3 (130-400); RED BLOOD COUNT 3.93 M/mm3 (4.10-5.30)
[2019-06-09 07:57] LABS: INR 1.3 (0.8-3.0); PROTHROMBIN TIME 14.8 SECONDS (9.7-12.8)
[2019-06-09 08:04] LABS: ALBUMIN 2.6 gm/dL (3.5-5.0); BILIRUBIN,TOTAL 0.8 mg/dL (0.0-1.0); CALCIUM 7.3 mg/dL (8.4-10.2); CREATININE, serum 1.98 (0.52-1.25); TOTAL PROTEIN 4.9 gm/dL (6.4-8.2)
[2019-06-09 08:20] LABS: HEMATOCRIT 31.1 % (37.0-47.0); HEMOGLOBIN 9.7 g/dl (12.5-16.0); MEAN CORPUSCULAR HEMOGLOBIN 25 pg (27.0-31.0)
--- NOTE | 2019-06-09 09:55 | NUR ---
PATIENT ASSESSMENT COMPLETED. SHE FEELS A LITTLE LIGHT HEADED. HELD BP MEDICATION THIS MORNING. ILIOSTOMY INTACT. DENIES PAIN FEELS WEAK. SHE REFUSES BREAKFAST ONLY ATE ONE BITE OF EGGS AND DRANK A GLASS OF WATER WITH MEDICATIONS. NO OTHER NEEDS AT THIS TIME.
[2019-06-09 09:57] VITALS: BP 106/61; PULSE 72; TEMP 97.6
[2019-06-09 12:27] VITALS: BP 99/51; PULSE 65; TEMP 97.9
--- NOTE | 2019-06-09 14:10 | NUR ---
changed iliostomy wafer and bag at this time. it was leaking. Tolerates well
[2019-06-09 16:31] VITALS: BP 119/73; PULSE 77; TEMP 97.6
--- NOTE | 2019-06-09 19:00 | NUR ---
REPORT RECEIVED FROM HAROLDO ARAMBULA. CARE OF PT ASSUMED AT THIS TIME. BEDSIDE ROUNDS COMPLETED AT THIS TIME, PT DENIES NEEDS. CALL LIGHT WITHIN REACH.
[2019-06-09 20:52] VITALS: BP 126/66; PULSE 73; TEMP 98.2
--- NOTE | 2019-06-09 22:00 | NUR ---
OSTOMY SITE FOUND TO BE LEAKING AROUND FLANGE AND FROM BAG. GREEN THICK, SEEDY STOOL NOTED. FLANGE AND BAG REMOVED, STOMA BEEFY RED WITH EXCORIATION NOTED AROUND STOMA EDGES. AREA CLEANED AND PAINTED WITH SKIN BARRIER PRIOR TO NEW FLANGE AND BAG APPLICATION. PT TOLERATED WELL. CALL LIGHT WITHIN REACH.
--- NOTE | 2019-06-09 22:00 | NUR ---
PT IS AWAKE, DISORIENTED PER NORMAL, CONVERSED VERY SLOWLY. PT STATES HER NAME AND BIRTHDATE, UNABLE TO STATE THE DATE OR PLACE. ILEOSTOMY TO RLQ OF ABDOMEN IS FOUND TO BE LEAKING. FLANGE AND BAG CHANGED AT THIS TIME. GREEN, SEEDY STOOL NOTED TO BE DRAINING WITH SOME GREEN, BROWN LIQUID STOOL NOTED ALSO. ALL LINENS AND PT GOWN CHANGED AT THIS TIME ALSO. CLEAN BRIEF PLACED ON PT. PT POSITIONED TO L SIDE WITH PILLOWS PLACED FOR COMFORT. PT GIVEN HER MEDICATIONS AT THIS TIME WITHOUT ISSUES. CALL LIGHT WITHIN REACH.
--- NOTE | 2019-06-09 23:00 | NUR ---
PT REPOSITIONED TO L SIDE WITH PILLOW PLACED TO BACK FOR COMFORT. CALL LIGHT WITHIN REACH.
[2019-06-10] VITALS: BP 100/53; PULSE 74; TEMP 98.4
--- NOTE | 2019-06-10 01:00 | NUR ---
PT REPOSITIONED TO R SIDE WITH PILLOW PLACED TO BACK FOR COMFORT. OSTOMY SITE CHECKED FOR LEAKING. CALL LIGHT WITHIN REACH.
--- NOTE | 2019-06-10 03:26 | NUR ---
PT REPOSITIONED TO L SIDE WITH PILLOW PLACED TO BACK FOR COMFORT. WARM BLANKET PROVIDED AT THIS TIME. CALL LIGHT WITHIN REACH. OSTOMY SITE CHECKED FOR LEAKING AND EMPTIED OF 300ML OF LIQUID FECES AT THIS TIME.
[2019-06-10 04:00] VITALS: BP 101/53; PULSE 68; TEMP 98.4
--- NOTE | 2019-06-10 05:00 | NUR ---
PT REPOSITIONED TO LAY ON BACK AT THIS TIME. CALL LIGHT WITHIN REACH.
--- NOTE | 2019-06-10 05:51 | NUR ---
PT HAS HAD A GOOD NIGHT, SLEPT WELL. PT HAS REMAINED DISORIENTED, ALTHOUGH IS PLEASANT AND REORIENTS EASILY. PT DENIES PAIN WHEN ASKED, DOES MOAN WITH DISCOMFORT WHEN TOUCHING HER ILEOSTOMY OR ABDOMEN NEAR STOMA. OSTOMY HAS BEEN DRAINING GREEN LIQUID STOOL WITH PARTICULATES. PT HAS BEEN REPOSITIONED Q2 HOURS THROUGH THE NIGHT TO PREVENT SKIN BREAKDOWN. IVF CONT TO INFUSE THROUGH PICC IN L UPPER ARM AT 7ML/HR. CALL LIGHT WITHIN REACH.
[2019-06-10 06:22] LABS: BASO % 0.1 % (0.0-2.0); EOS # 0.4 (0.0-0.7); EOS % 5.4 % (0-4.0); GRAN # 5.9 (1.4-6.5); GRAN % 78.4 % (42.2-75.2); LYMPH # 0.7 (1.2-3.4); LYMPH % 8.9 % (20.0-51.0); MEAN CELL VOLUME 80 fl (80.0-100.0); MEAN CORPUSCULAR HGB CONC 31 g/dl (33.0-37.0); MEAN PLATELET VOLUME 9.7 fl (7.4-10.4); MONO # 0.5 (0.1-0.6); MONO % 6.8 % (1.7-9.3); PLATELET COUNT 147 K/mm3 (130-400); RED BLOOD COUNT 3.78 M/mm3 (4.10-5.30)
[2019-06-10 06:33] LABS: HEMATOCRIT 30.1 % (37.0-47.0); HEMOGLOBIN 9.4 g/dl (12.5-16.0); MEAN CORPUSCULAR HEMOGLOBIN 25 pg (27.0-31.0)
[2019-06-10 06:36] LABS: ALBUMIN 2.4 gm/dL (3.5-5.0); BILIRUBIN,TOTAL 0.8 mg/dL (0.0-1.0); CALCIUM 7.4 mg/dL (8.4-10.2); CREATININE, serum 3.31 (0.52-1.25); MAGNESIUM 1.7 mg/dL (1.6-2.3); PHOSPHOROUS 2.7 mg/dL (2.5-4.5); POTASSIUM 3.3 mmol/L (3.4-5.0); TOTAL PROTEIN 4.8 gm/dL (6.4-8.2)
--- NOTE | 2019-06-10 07:16 | NUR ---
REPORT GIVEN TO HAROLDO ARAMBULA; BEDSIDE ROUNDS COMPLETED AT THIS TIME. CALL LIGHT WITHIN REACH.
[2019-06-10 07:47] VITALS: BP 109/58; PULSE 71; TEMP 97.6
--- NOTE | 2019-06-10 08:29 | NUR ---
PATIENT ASSESSMENT COMPLETED. SHE IS SLEEPY BUT ARROUSES TO VERBAL STIMULI. IVF INFUSING AT 100C/HR. DENIES ANY PAIN AT THIS TIME.
--- NOTE | 2019-06-10 10:00 | NUR ---
PATIENT DRESSING CHANGE TO COXXYX. SHE ALSO HAS A SMALL AREA ON THE RIGHT BUTTOCK. MEPILEX APPLIED TO THESE AREAS.
[2019-06-10 13:02] VITALS: BP 112/60; PULSE 69; TEMP 98.4
--- NOTE | 2019-06-10 15:57 | NUR ---
PATIENT ILIOSTOMY IS LEAKING AT THE SEAL. THIS WAS REPLACED. THE SURROUNDING AREA AROUND THE STOMA IS RED AND SORE. PATIENT TOLERATES WELL.
[2019-06-10 16:21] VITALS: BP 106/67; PULSE 78; TEMP 98
--- NOTE | 2019-06-10 20:10 | NUR ---
Shift assessment complete. Pt resting in bed, sleepy but easy to wake, a&o, cooperative c cares. Pt c/o nausea et pain to coccyx et under stoma dressing; PRN pain manager of medical. Pt denies any other c/o. PICC noted to L upper arm, patent c good blood return. Pt denies further needs. Call light in reach, bed alarm on. Will continue to monitor.
[2019-06-10 21:47] VITALS: BP 119/67; PULSE 77; TEMP 98.8
[2019-06-11] VITALS (7 sets, daily range): BP systolic 110–147; BP diastolic 51–76; PULSE 71–82; TEMP 97.5–98.5
[2019-06-11 05:43] LABS: BASO % 0.2 % (0.0-2.0); EOS # 0.4 (0.0-0.7); EOS % 3.9 % (0-4.0); GRAN # 7.6 (1.4-6.5); LYMPH # 0.5 (1.2-3.4); LYMPH % 5.9 % (20.0-51.0); MEAN CELL VOLUME 80 fl (80.0-100.0); MEAN CORPUSCULAR HGB CONC 31 g/dl (33.0-37.0); MEAN PLATELET VOLUME 9.6 fl (7.4-10.4); MONO # 0.5 (0.1-0.6); MONO % 5.6 % (1.7-9.3); PLATELET COUNT 143 K/mm3 (130-400); REDCELL DISTRIBUTION WIDTH-CV 16.6 % (11.5-14.5)
[2019-06-11 05:46] LABS: HEMATOCRIT 32.1 % (37.0-47.0); HEMOGLOBIN 9.9 g/dl (12.5-16.0); MEAN CORPUSCULAR HEMOGLOBIN 25 pg (27.0-31.0)
[2019-06-11 06:00] LABS: CALCIUM 7.5 mg/dL (8.4-10.2); CREATININE, serum 4.51 (0.52-1.25); POTASSIUM 4.3 mmol/L (3.4-5.0)
--- NOTE | 2019-06-11 07:16 | NUR ---
appears to be sleeping, makes audible sound when name is called but does not open her eyes, ileostomy with large amount liquid stool in bag and emptied at this time
--- NOTE | 2019-06-11 08:05 | NUR ---
full assessment completed, see interventions for further info, is very sleepy but does arouse, ileostomy wafer intact without leaking and has liquid stool in bag, has 1cm stage II pressure ulcer to right buttock, mepiplex dressing over cocyx, has healing midline incision,
--- NOTE | 2019-06-11 09:00 | NUR ---
awake and opening her eyes, takes sips of water without difficulty, am meds given, STUDY SPECIALIST in to assist her with eaating breakfast
--- NOTE | 2019-06-11 09:29 | NUR ---
PATIENT OBSERVER assisted her with eating, SHANNAN states she appeared to have difficulty swallowing pancakes even though they were moist with syrup, will continue to monitor
--- NOTE | 2019-06-11 10:30 | NUR ---
PICC intact left upper arm. Small amount of bloody drainage noted. Gauze noted underneath dressing. With sterile technique left upper arm PICC dressing change done with insertion site cleansed with ChloraPrep 1, chlorhexidine impregnated disc applied, skin prep, StatLock, and Tegaderm applied. No further drainage noted. No signs or symptoms of IV complications noted. Patient with no concerns voiced.
--- NOTE | 2019-06-11 10:50 | NUR ---
up to bedside commode with myself and GARDENING INSTRUCTOR and she did void and UA sent, then back to bed, mepiplex dressing to cocyx removed has approx 2cm stage II ulcer to cocyx, covered with foam dressing and new foam dressing placed to left buttock ulcer, she was able to take a few short steps while getting up bedside commode
[2019-06-11 11:02] LABS: COLLECTION METHOD CATHETER
[2019-06-11 11:41] LABS: MUCOUS Present /lpf; PH 6 (5-8); SQUAMOUS EPITHELIAL 0-2 /hpf; URINE APPEARANCE Cloudy; URINE BACTERIA Occasional /hpf; URINE BILIRUBIN Negative (NEGATIVE); URINE BLOOD 3+ (NEGATIVE); URINE COLOR Yellow; URINE GLUCOSE 1+ (NEGATIVE); URINE KETONE Trace (NEGATIVE); URINE LEUKOCYTE ESTERASE Trace (NEGATIVE); URINE NITRATE Negative (NEGATIVE); URINE PROTEIN(semi-quant) 1+ (NEGATIVE); URINE RBC >50 /hpf; URINE UROBILINOGEN Negative (NEGATIVE)
--- NOTE | 2019-06-11 11:45 | NUR ---
awake now and following instructions for neuro checks,
--- NOTE | 2019-06-11 11:48 | NUR ---
ELHAM contacted and faxed updates to [facility]. SW to continue to follow.
--- NOTE | 2019-06-11 13:40 | NUR ---
in to visit and is asssiting her with eating lunch, she does arouse and opens her eyes and then goes back to sleep
--- NOTE | 2019-06-11 14:27 | NUR ---
with much encouragement took approx 200ml ensure
--- NOTE | 2019-06-11 15:13 | NUR ---
in bed and appears to sleep, arouses when her name is called, when try to give her a sip of water at first she refuses and then will take a sip from the straw
--- NOTE | 2019-06-11 16:30 | NUR ---
entered room to check on patient and ileostomy is now leaking copius amounts, new wafer placed with assistance of HAROLDO Canela and is not leaking at this time, complete linen change and incontinent care provided, bedside shift report given to HAROLDO Foster
--- NOTE | 2019-06-11 20:20 | NUR ---
Shift assessment complete. Pt resting in bed, sleepy but easy to wake, oriented to person/place, cooperative c cares. Pt continued c/o to back et buttock ulcer; PRN pain remedial reading teacher at this time. Pt denies any other c/o. PICC noted to L upper arm, patent c good blood return. Illeostomy noted, bag in place et occlusive at this time. Pt denies needs. Call light in reach, bed alarm on. Will continue to monitor.
[2019-06-12 03:30] VITALS: BP 154/90; PULSE 74
[2019-06-12 05:44] LABS: BASO % 0.1 % (0.0-2.0); EOS # 0.5 (0.0-0.7); EOS % 5.8 % (0-4.0); GRAN # 7.3 (1.4-6.5); GRAN % 83.4 % (42.2-75.2); LYMPH # 0.5 (1.2-3.4); LYMPH % 5.2 % (20.0-51.0); MEAN CELL VOLUME 80 fl (80.0-100.0); MEAN CORPUSCULAR HGB CONC 31 g/dl (33.0-37.0); MEAN PLATELET VOLUME 9.9 fl (7.4-10.4); MONO # 0.4 (0.1-0.6); PLATELET COUNT 124 K/mm3 (130-400); RED BLOOD COUNT 3.89 M/mm3 (4.10-5.30); REDCELL DISTRIBUTION WIDTH-CV 16.8 % (11.5-14.5)
[2019-06-12 05:57] LABS: ALBUMIN 2.4 gm/dL (3.5-5.0); BILIRUBIN,TOTAL 0.8 mg/dL (0.0-1.0); CALCIUM 7.7 mg/dL (8.4-10.2); CREATININE, serum 5.63 (0.52-1.25); POTASSIUM 4.2 mmol/L (3.4-5.0); TOTAL PROTEIN 4.9 gm/dL (6.4-8.2)
[2019-06-12 06:24] LABS: HEMATOCRIT 31.2 % (37.0-47.0); HEMOGLOBIN 9.8 g/dl (12.5-16.0); MEAN CORPUSCULAR HEMOGLOBIN 25 pg (27.0-31.0)
[2019-06-12 07:43] VITALS: BP 179/95; PULSE 74; TEMP 97.9
--- NOTE | 2019-06-12 08:40 | NUR ---
Pt not very responsive this morning, would not open her eyes but did respond when asked questions, shift assessment complete, left Pt call light in reach, bed in lowest position, alarm on.
[2019-06-12 11:39] VITALS: BP 119/66; PULSE 74; TEMP 97.8
--- NOTE | 2019-06-12 15:35 | NUR ---
ELHAM contacted and faxed updates to [facility]. SW to continue to follow.
[2019-06-12 15:40] VITALS: BP 118/56; PULSE 77; TEMP 97.9
--- NOTE | 2019-06-12 18:42 | NUR ---
Pt has been resting in the room, she will respond to questions cynthiah yes / no answers, leonard catheter inserted this afternoon @ about 1515 with immediate output of 700ml of dark carlos urine, since insertion output has been very little 10-15ml still dark carlos, Pt tolerated the insertion well. Pt has not taken much fluid by mouth during the day. VS have remained stable.
[2019-06-12 20:09] VITALS: BP 117/57; PULSE 78; TEMP 97.9
--- NOTE | 2019-06-12 20:20 | NUR ---
Shift assessment complete. Pt resting in bed, sleepy but easy to wake, responsive to verbal stimuli but has only very short responses. Pt responds "yes" when asked about pain, unable to elaborate other than "so much pain", pt also grimaces int et yells out c any movement; PRN pain medical health researcher. PICC noted to L upper arm, patent c good blood return from both ports. Illeostomy noted, exoriation around site from previous large amounts of stool, no other complications, appliance C/D/I at this time. Judd to DD, min amount dark carlos urine noted. Pt s further needs at this time. Call light in reach, bed alarm on. Will continue to monitor.
[2019-06-12 23:55] VITALS: BP 111/55; PULSE 80; TEMP 98.5
[2019-06-13 03:11] VITALS: BP 112/59; PULSE 86; TEMP 98.4
[2019-06-13 06:01] LABS: BASO % 0.2 % (0.0-2.0); EOS # 0.3 (0.0-0.7); EOS % 3.7 % (0-4.0); GRAN # 7.4 (1.4-6.5); GRAN % 86.7 % (42.2-75.2); LYMPH # 0.4 (1.2-3.4); LYMPH % 4.6 % (20.0-51.0); MEAN CELL VOLUME 81 fl (80.0-100.0); MEAN CORPUSCULAR HGB CONC 31 g/dl (33.0-37.0); MEAN PLATELET VOLUME 9.7 fl (7.4-10.4); MONO # 0.4 (0.1-0.6); MONO % 4.4 % (1.7-9.3); PLATELET COUNT 139 K/mm3 (130-400); RED BLOOD COUNT 3.83 M/mm3 (4.10-5.30); REDCELL DISTRIBUTION WIDTH-CV 16.9 % (11.5-14.5)
[2019-06-13 06:06] LABS: INR 1.3 (0.8-3.0); PROTHROMBIN TIME 14.8 SECONDS (9.7-12.8)
[2019-06-13 06:16] LABS: CALCIUM 7.5 mg/dL (8.4-10.2); CREATININE, serum 2.08 (0.52-1.25); POTASSIUM 3.4 mmol/L (3.4-5.0)
[2019-06-13 06:24] LABS: HEMATOCRIT 30.9 % (37.0-47.0); HEMOGLOBIN 9.6 g/dl (12.5-16.0); MEAN CORPUSCULAR HEMOGLOBIN 25 pg (27.0-31.0)
[2019-06-13 07:53] VITALS: BP 149/74; PULSE 83; TEMP 98.1
--- NOTE | 2019-06-13 09:00 | NUR ---
Assessment completed, drowsy but arousable, patient is not very verbal but is able to shake head "Yes/no", she is currently NPO for dialysis cath placement today, creat actually improved to 2 and i have notified nephrologoy who is considering canceling dialysis cath placement, illeosotmy is patent with stool noted in bag, leonard cath in place with some clear yellow urine, postion changes frewquently as patient has stgII to coccyx/ dressing is C/D/I, will continue to monitor
[2019-06-13 11:15] VITALS: BP 126/66; PULSE 78; TEMP 97.5
--- NOTE | 2019-06-13 15:35 | NUR ---
ELHAM contacted and faxed updates to [facility]. SW to continue to follow.
[2019-06-13 16:21] VITALS: BP 112/59; PULSE 74; TEMP 97.4
--- NOTE | 2019-06-13 19:14 | NUR ---
Patients Illeosotmy was leaking and I have changed out the appliance and bag, skin prep aapplied, positiong changed and dinner offered but refused by patient
[2019-06-13 20:37] VITALS: BP 113/60; PULSE 79; TEMP 98.8
--- NOTE | 2019-06-13 21:00 | NUR ---
Patient assessed at this time. Alert and oriented. Staff anticipates needs. Answers yes and no questions. Denies pain and discomfort. PICC to LUE. Denies SOB and dyspnea. LS CTA upper lobes, diminished lower lobes. Respirations shallow, even, and unlabored. HRR. Telemetry in place-NS. BSA. Illeostomy-brown liquid stools. Indwelling leonard catheter draining clear yellow urine via dependent drainage. 1+ edema BUE and BLE. Voices no questions, needs, or concerns at this time. Staff repositions in bed. Dressing to ulcer to coccyx is CDI. Resting in bed with call light within reach.
[2019-06-13 23:50] VITALS: BP 111/59; PULSE 76; TEMP 97.4
[2019-06-14 04:30] VITALS: BP 129/70; PULSE 80; TEMP 97.5
--- NOTE | 2019-06-14 05:48 | NUR ---
Patient resting in bed with eyes closed at this time. Denies having pain and discomfort when asked. Staff continues to anticipate needs, and assists with repositioning in bed. Illeostomy bag changed once during the night due to leaking. Resting in bed with eyes closed at this time. Call light is within reach.
[2019-06-14 06:08] LABS: BASO % 0.2 % (0.0-2.0); EOS # 0.3 (0.0-0.7); EOS % 5.4 % (0-4.0); GRAN # 4.7 (1.4-6.5); HEMATOCRIT 28.8 % (37.0-47.0); LYMPH # 0.6 (1.2-3.4); LYMPH % 9.1 % (20.0-51.0); MEAN CELL VOLUME 82 fl (80.0-100.0); MEAN CORPUSCULAR HEMOGLOBIN 26 pg (27.0-31.0); MEAN CORPUSCULAR HGB CONC 31 g/dl (33.0-37.0); MEAN PLATELET VOLUME 9.8 fl (7.4-10.4); MONO # 0.4 (0.1-0.6); MONO % 6.6 % (1.7-9.3); PLATELET COUNT 153 K/mm3 (130-400); RED BLOOD COUNT 3.51 M/mm3 (4.10-5.30)
[2019-06-14 06:27] LABS: CALCIUM 7.5 mg/dL (8.4-10.2); CREATININE, serum 0.88 (0.52-1.25); POTASSIUM 3.6 mmol/L (3.4-5.0)
[2019-06-14 07:39] VITALS: BP 121/61; PULSE 63; TEMP 97.9
--- NOTE | 2019-06-14 10:13 | NUR ---
Patient is laying in bed, I speak to her and she only nods. Did ask if she would take her medications and she shook her head no. I did ask if she would later and she nodded yes. I did explain to her that there was heart medications in there. She did not acknowledge that. She did squeeze hands but was uninterested in particpating in the rest of the neuro checks, she just shook her head no. She continues to lay in bed with head turned to the left. Does have call light and personal belongings within reach.
[2019-06-14 11:46] VITALS: BP 110/60; PULSE 69; TEMP 98.1
--- NOTE | 2019-06-14 18:30 | NUR ---
Patient was non-verbal most of the shift. Would shake her head yes or no and answer appropriately. Did hear her say words a few times. She did have a conversation when speaking with the provider during rounds when he said he may discharge her tomorrow. She agreed to sit up in the recliner and is resting there. Call light and personal items are within reach.
[2019-06-14 19:10] VITALS: BP 114/67; PULSE 88; TEMP 98.6
--- NOTE | 2019-06-14 19:45 | NUR ---
Patient alert and oriented x 4. Talking and smiling. Sitting up in recliner at this time. Denies having pain and discomfort. PICC to LUE. Denies SOB and dyspnea. LS CTA in upper lobes, diminished in lower. Respirations shallow, even, and unlabored. HRI. Telmetry in place-A-fib rate control. BSA. Illeostomy present, with brown, liquid stool. Indwelling leonard catheter in place, draining clear carlos urine via dependent drainage. No edema. Voices no questions, needs, or concerns at this time. Resting in recliner with call light within reach.
[2019-06-14 23:13] VITALS: BP 118/96; PULSE 85; TEMP 98.5
[2019-06-15 06:02] LABS: BASO % 0.4 % (0.0-2.0); EOS # 0.3 (0.0-0.7); EOS % 4.1 % (0-4.0); GRAN # 5.4 (1.4-6.5); GRAN % 74.1 % (42.2-75.2); LYMPH % 13.7 % (20.0-51.0); MEAN CELL VOLUME 83 fl (80.0-100.0); MEAN CORPUSCULAR HGB CONC 30 g/dl (33.0-37.0); MEAN PLATELET VOLUME 9.7 fl (7.4-10.4); MONO # 0.5 (0.1-0.6); MONO % 7.3 % (1.7-9.3); PLATELET COUNT 193 K/mm3 (130-400); RED BLOOD COUNT 3.91 M/mm3 (4.10-5.30); REDCELL DISTRIBUTION WIDTH-CV 16.6 % (11.5-14.5)
[2019-06-15 06:07] LABS: HEMATOCRIT 32.5 % (37.0-47.0); HEMOGLOBIN 9.8 g/dl (12.5-16.0); MEAN CORPUSCULAR HEMOGLOBIN 25 pg (27.0-31.0)
[2019-06-15 06:15] LABS: CALCIUM 8.2 mg/dL (8.4-10.2); CREATININE, serum 0.71 (0.52-1.25); POTASSIUM 4.2 mmol/L (3.4-5.0)
--- NOTE | 2019-06-15 07:02 | NUR ---
Patient was more talkative tonight than she was on Tuesday night. Did respond and talk with this nurse each time she was checked on. Smiling. Voices no questions, needs, or concerns at this time. Resting in bed with call light within reach. Staff assists with repositioning during nightly rounds.
[2019-06-15 07:32] VITALS: BP 114/59; PULSE 83; TEMP 98
--- NOTE | 2019-06-15 10:36 | NUR ---
Patient is awake in bed, opens eyes to speech. States she has no pain. Took medications in applesauce, did chew all medications. Patient had no issue neurologically been following commands appropriately. Respirations are even and nonlabored. Call light and personal items are within reach.
[2019-06-15] MEDS ORDERED: ZOLOFT 25MG25 MG PO (11:23)
[2019-06-15 12:04] VITALS: BP 140/73; PULSE 77; TEMP 97.7
--- NOTE | 2019-06-15 12:51 | NUR ---
ILEOSTOMY HAD LEAKED AND LOOSENED FROM THE SKIN. POUCH AND ADHESIVE WERE REMOVED, SKIN CARE WAS PROVIDED, MODERATE AMOUNT OF STOOL WAS IN POUCH AND BED. AREA WAS PREPPED AND WAFER APPLIED. TOLERATED WELL. STATLOCK FOR WEISS WAS CHANGED IT WAS SOILED. LINENS, CHUCKS AND GOWN REPLACED. PATIENT IS CURRENTLY RESTING COMFORTABLY IN BED.
--- NOTE | 2019-06-15 13:51 | NUR ---
The patient is to discharge today, 06/15, to [place] [facility] for a skilled stay. Transportation was scheduled for 1530, via [facility]. ELHAM informed the patient, patient's RN, and the patient's via phone. They were all in agreeance to the time. ELHAM also explained the IM form to the patient's , via phone. The patient's gave SW his verbal consent and the patient was provided a copy. No additional needs at this time.
--- NOTE | 2019-06-15 16:25 | NUR ---
Patient discharged home to [facility]. Prior to discharge ileostomy appliance was changed due to leakage. Area cleansed, skin prepped, powder applied and adhesive cream applied. Appliance cut to 1 1/8 in circumference. Patient did grimace as the area around the stoma was reddened and irritated. Report called to nurse at the residential. Did speak with her regarding this and she stated it was an off again, off again problem for her. She left facility at 1614 with facility transportation.
== END 2019-06-15 16:14 | DRG 871 ==
LOC: COL.ER 10:39 → MEDICAL 13:55 → ICU 13:55 → MEDICAL 06-08 16:22
PROVIDERS: Family Medicine; Nurse Practitioner; Nurse Practitioner Family; Physician Assistant; Student in an Organized Health Care Education/Training Program; ADMIT Student in an Organized Health Care Education/Training Program
PROC: 02HV33Z Insertion of Infusion Device into Superior Vena Cava, Percutaneous Approach (ICD-10-PCS; 2019-06-07)
PROC: 02PYX3Z Removal of Infusion Device from Great Vessel, External Approach (ICD-10-PCS; principal; 2019-06-15)
DX: A41.9 Sepsis, unspecified organism (principal); E43 Unspecified severe protein-calorie malnutrition; I21.A1 Myocardial infarction type 2; N17.9 Acute kidney failure, unspecified; Z66 Do not resuscitate; E87.1 Hypo-osmolality and hyponatremia; E87.3 Alkalosis; Z68.1 Body mass index [BMI] 19.9 or less, adult; E87.2 Acidosis; I47.2 Ventricular tachycardia; N13.30 Unspecified hydronephrosis; R55 Syncope and collapse; R74.8 Abnormal levels of other serum enzymes; F03.90 Unspecified dementia, unspecified severity, without behavioral disturbance, psychotic disturbance, mood disturbance, and anxiety; E03.9 Hypothyroidism, unspecified; I10 Essential (primary) hypertension; E87.8 Other disorders of electrolyte and fluid balance, not elsewhere classified; I48.91 Unspecified atrial fibrillation; E87.6 Hypokalemia; E16.2 Hypoglycemia, unspecified; M85.80 Other specified disorders of bone density and structure, unspecified site; D50.9 Iron deficiency anemia, unspecified; R23.3 Spontaneous ecchymoses; F32.9 Major depressive disorder, single episode, unspecified; Z86.718 Personal history of other venous thrombosis and embolism; Z90.710 Acquired absence of both cervix and uterus; Z85.3 Personal history of malignant neoplasm of breast; Z90.49 Acquired absence of other specified parts of digestive tract; Z79.01 Long term (current) use of anticoagulants; Z88.2 Allergy status to sulfonamides; Z93.2 Ileostomy status
CPT/HCPCS: 99223-AI; 99231-AI; 99232-AI; A4216; A9500; C1751; J0282; J0692; J1644; J2785; J3370; J3480; J7030; J7040; J7050; J7060; J7070

== ENCOUNTER 2019-07-09 18:00 | Inpatient (IN) | payer MEDICARE, BC ==
[~2019-07-09] VITALS: Ht 160 cm; Wt 67.0 kg
[~2019-07-09 18:00] MED LIST changes: +CALCIUM 600 PLU1 TAB PO; +VITAMIN C500 MG PO; +ZOLOFT 25MG25 MG PO
[2019-07-09 19:39] LABS: BASO % 0.3 % (0.0-2.0); EOS % 0.1 % (0-4.0); GRAN % 87.6 % (42.2-75.2); LYMPH # 0.8 (1.2-3.4); MEAN CELL VOLUME 75 fl (80.0-100.0); MEAN CORPUSCULAR HEMOGLOBIN 26 pg (27.0-31.0); MEAN CORPUSCULAR HGB CONC 34 g/dl (33.0-37.0); MEAN PLATELET VOLUME 9.3 fl (7.4-10.4); MONO # 0.7 (0.1-0.6); MONO % 5.2 % (1.7-9.3); PLATELET COUNT 190 K/mm3 (130-400); RED BLOOD COUNT 5.87 M/mm3 (4.10-5.30); REDCELL DISTRIBUTION WIDTH-CV 17.5 % (11.5-14.5)
[2019-07-09 19:49] LABS: ALBUMIN 4.4 gm/dL (3.5-5.0); BILIRUBIN,TOTAL 1.4 mg/dL (0.0-1.0); C-REACTIVE PROTEIN 0.9 mg/dL (0.0-0.9); CALCIUM 9.4 mg/dL (8.4-10.2); CREATININE, serum 5.71 (0.52-1.25); TOTAL PROTEIN 7.7 gm/dL (6.4-8.2)
[2019-07-09 20:12] LABS: COLLECTION METHOD CLEAN CATCH
[2019-07-09 20:22] LABS: SQUAMOUS EPITHELIAL None Seen /hpf; URINE BACTERIA None Seen /hpf; URINE RBC None Seen /hpf
[2019-07-09 20:29] LABS: PH 7 (5-8); URINE APPEARANCE Turbid; URINE BILIRUBIN Negative (NEGATIVE); URINE BLOOD Negative (NEGATIVE); URINE COLOR Amber; URINE GLUCOSE Negative (NEGATIVE); URINE KETONE Negative (NEGATIVE); URINE LEUKOCYTE ESTERASE 3+ (NEGATIVE); URINE NITRATE Negative (NEGATIVE); URINE PROTEIN(semi-quant) 2+ (NEGATIVE); URINE UROBILINOGEN Negative (NEGATIVE)
[2019-07-09 22:08] LABS: ARTERIAL BLD GAS O2 SATURATION 96.3 % (92-100); ARTERIAL BLD GAS TCO2 CT 36.1; ARTERIAL BLOOD GAS BASE EXCESS 10.4 (-2-2); ARTERIAL BLOOD GAS HCO3 34.7 meq/L (22-26); ARTERIAL BLOOD GAS PCO2 45.1 mmHg (35-45); ARTERIAL BLOOD GAS PO2 87.8 mmHg (80-100)
[2019-07-10] VITALS (424 sets, daily range): BP systolic 74–117; BP diastolic 47–78; PULSE 61–88; TEMP 97.1–98.1; O2SAT 79–100
--- NOTE | 2019-07-10 00:22 | NUR ---
Received report from HAROLDO Shelby.
--- NOTE | 2019-07-10 00:36 | NUR ---
Patient arrives to ICU room 1 via ED stretcher. Patient is transferred via turning sheet into ICU bed. Patient is alert although not oriented except for to person. Initial vitals are within normal limits. Skin issues are noted as follows, a stage 3 ulcer to the left upper portion of coccyx, a blister to the lower left buttock, irritation to the anus with scant bleeding, a skin tear to right upper arm, and a bruise to the left foot. Patient arrives with levophed infusing to the MINDI at 0.1 mcg/kg/min and NS running at 200 mL/hour. 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 At arrival, the ileostomy is leaking through dressing. Dressing is removed to find skin surrounding stoma irritated and with scant bleeding. Clean dressing and drainage bag are applied. Patient denies any pain or discomfort at this time. Deedee notified of patient's arrival. Will continue to monitor.
[2019-07-10 01:13] LABS: CALCIUM 7.7 mg/dL (8.4-10.2); CREATININE, serum 4.35 (0.52-1.25); POTASSIUM 4.1 mmol/L (3.4-5.0)
[2019-07-10 06:17] LABS: BASO % 0.2 % (0.0-2.0); EOS # 0.1 (0.0-0.7); EOS % 0.6 % (0-4.0); GRAN # 13.6 (1.4-6.5); GRAN % 86.6 % (42.2-75.2); LYMPH # 0.9 (1.2-3.4); LYMPH % 5.8 % (20.0-51.0); MEAN CELL VOLUME 78 fl (80.0-100.0); MEAN CORPUSCULAR HGB CONC 33 g/dl (33.0-37.0); MEAN PLATELET VOLUME 9.1 fl (7.4-10.4); MONO % 6.4 % (1.7-9.3); RED BLOOD COUNT 4.26 M/mm3 (4.10-5.30); REDCELL DISTRIBUTION WIDTH-CV 16.8 % (11.5-14.5)
[2019-07-10 06:28] LABS: CALCIUM 7.7 mg/dL (8.4-10.2); CREATININE, serum 3.87 (0.52-1.25); MAGNESIUM 1.5 mg/dL (1.6-2.3); PHOSPHOROUS 5.3 mg/dL (2.5-4.5); POTASSIUM 3.7 mmol/L (3.4-5.0)
[2019-07-10 06:34] LABS: HEMATOCRIT 33.4 % (37.0-47.0); MEAN CORPUSCULAR HEMOGLOBIN 26 pg (27.0-31.0); PLATELET COUNT 339 K/mm3 (130-400)
--- NOTE | 2019-07-10 07:52 | NUR ---
Report given to HAROLDO Cruz.
--- NOTE | 2019-07-10 10:32 | NUR ---
Senior It Architect attended clinical rounds with the team. SW then met with patient to discuss discharge planning. Patient states she lives at [facility]. Patient could not remember the name of her primary care physician. ELHAM contacted patient's , Scott (ph#[phone]) who confirmed patient lives at [facility] and sees Dr. Cancino for primary care. Patient has Advance Directives designating Scott in the EMR. ELHAM reviewed patient choice form with Scott who states he would like for patient to return to [facility] and provided verbal consent on choice form. ELHAM placed form on chart. ELHAM contacted Javed at [facility] and faxed referral. SW to continue to follow.
[2019-07-10 14:06] LABS: CREATININE, serum 3.4 (0.52-1.25)
--- NOTE | 2019-07-10 14:14 | NUR ---
To CT acc by Radiology staff via bed
[2019-07-10 15:39] LABS: INR 1.3 (0.8-3.0); PROTHROMBIN TIME 15.7 SECONDS (9.7-12.8)
--- NOTE | 2019-07-10 16:26 | NUR ---
Discussed patient with Diandra/ortho patient unlikely surgical candidate at this time, current imaging indicates fracture of left hip is not displaced. Radiology notified of order for xray of left hip. If INSTALLER INSPECTOR FINAL not in tonight, Dr Tavarez will see tomorrow AM.
[2019-07-11] VITALS (876 sets, daily range): BP systolic 91–104; BP diastolic 51–62; PULSE 55–67; TEMP 97–98.2; O2SAT 54–100
[2019-07-11 05:29] LABS: BASO % 0.3 % (0.0-2.0); EOS # 0.2 (0.0-0.7); EOS % 2.8 % (0-4.0); GRAN # 5.2 (1.4-6.5); GRAN % 79.4 % (42.2-75.2); LYMPH # 0.8 (1.2-3.4); LYMPH % 11.5 % (20.0-51.0); MEAN CELL VOLUME 82 fl (80.0-100.0); MEAN CORPUSCULAR HGB CONC 32 g/dl (33.0-37.0); MEAN PLATELET VOLUME 8.8 fl (7.4-10.4); MONO # 0.4 (0.1-0.6); MONO % 5.5 % (1.7-9.3); REDCELL DISTRIBUTION WIDTH-CV 17.1 % (11.5-14.5)
[2019-07-11 05:38] LABS: ALBUMIN 2.3 gm/dL (3.5-5.0); BILIRUBIN,TOTAL 0.9 mg/dL (0.0-1.0); CALCIUM 7.4 mg/dL (8.4-10.2); CREATININE, serum 2.22 (0.52-1.25); MAGNESIUM 1.8 mg/dL (1.6-2.3); PHOSPHOROUS 3.5 mg/dL (2.5-4.5); TOTAL PROTEIN 4.6 gm/dL (6.4-8.2)
[2019-07-11 06:35] LABS: HEMATOCRIT 27.8 % (37.0-47.0); HEMOGLOBIN 8.8 g/dl (12.5-16.0); MEAN CORPUSCULAR HEMOGLOBIN 26 pg (27.0-31.0); PLATELET COUNT 184 K/mm3 (130-400)
[2019-07-11 12:36] LABS: PARTIAL THROMBOPLASTIN TIME 26.8 SECONDS (26.0-37.0)
--- NOTE | 2019-07-11 19:10 | NUR ---
Received report from HAROLDO Muniz.
--- NOTE | 2019-07-11 21:00 | NUR ---
Patient is resting quietly in bed. No complaints of pain or discomfort at this time. Vitals within normal limits. Upon assessment, patient's ileostomy is leaking and dressing is saturated with stool. A new dressing and collection bag is placed. Patient's stoma is pink and moist, however, the surrounding skin is excoriated and some bleeding is noted. Will continue to monitor.
[2019-07-12] VITALS (396 sets, daily range): BP systolic 90–113; BP diastolic 51–85; PULSE 63–80; TEMP 97.6–98.4; O2SAT 83–100
[2019-07-12 05:46] LABS: BASO % 0.3 % (0.0-2.0); EOS # 0.3 (0.0-0.7); EOS % 3.9 % (0-4.0); GRAN # 5.4 (1.4-6.5); GRAN % 74.1 % (42.2-75.2); LYMPH # 1.1 (1.2-3.4); LYMPH % 14.7 % (20.0-51.0); MEAN CELL VOLUME 83 fl (80.0-100.0); MEAN CORPUSCULAR HGB CONC 32 g/dl (33.0-37.0); MEAN PLATELET VOLUME 9.1 fl (7.4-10.4); MONO # 0.5 (0.1-0.6); MONO % 6.6 % (1.7-9.3); PLATELET COUNT 181 K/mm3 (130-400); RED BLOOD COUNT 3.21 M/mm3 (4.10-5.30)
[2019-07-12 05:52] LABS: CALCIUM 7.4 mg/dL (8.4-10.2); CREATININE, serum 1.47 (0.52-1.25); POTASSIUM 3.7 mmol/L (3.4-5.0)
[2019-07-12 06:16] LABS: HEMATOCRIT 26.6 % (37.0-47.0); HEMOGLOBIN 8.4 g/dl (12.5-16.0); MEAN CORPUSCULAR HEMOGLOBIN 26 pg (27.0-31.0)
--- NOTE | 2019-07-12 07:24 | NUR ---
Report given to HAROLDO Brown
--- NOTE | 2019-07-12 07:26 | NUR ---
Pt resting in bed with TV on, eyes closed, denies pain - oriented to person and place - disoriented to time-situation. Call light in reach.
--- NOTE | 2019-07-12 11:48 | NUR ---
Director Ambulatory attended clinical rounds with the team. Patient to transfer to the floor today. SW faxed updates to [facility].
--- NOTE | 2019-07-12 14:19 | NUR ---
MD Maulik office notified of consultation from 07/10/2019
--- NOTE | 2019-07-12 22:00 | NUR ---
GAVE REPORT TO HAROLDO BELL. PT GOING TO ROOM 325.
--- NOTE | 2019-07-12 22:30 | NUR ---
PT IS ADMITTED TO ROOM 325 FROM ICU WITH UROSEPSIS AND L HIP FRACTURE. PT DENIES ANY PAIN TO HER HIP. PER REPORT, UNSURE IF FRACTURE IS NEW OR AN OLD INJURY. PT IS ORIENTED TO SELF AND SITUATION, PLACE; DISORIENTED TO TIME PER HER NORMAL. PT IS APPROPRIATE AND PLEASANT. PICC LINE TO LEFT UPPER ARM WITH IVF INFUSING AND HEPARIN GTT INFUSING TO OTHER LUMEN. SITE IS DRESSED WITH WRAP. PT HAS A MEPILEX DRESSING TO HER SACRUM WHICH IS INTACT, PER REPORT PT HAS A STAGE 3 ULCER TO THIS AREA. ILEOSTOMY TO LLQ IS INTACT WITH YELLOW PARTICULATE STOOL NOTED, EMPTIED OF 125ML. PT REPORTS THIS AREA IS SLIGHTLY TENDER. SCANT AMOUNT OF LEAKAGE NOTED TO FLANGE AT THE BOTTOM. WEISS CATH IN PLACE WITH YELLOW URINE WITH SMALL AMOUNT OF SEDIMENT NOTED. PT CAME PER WC AND TRANSFERRED TO BED WITH MINIMAL ASSIST X1-2. CALL LIGHT WITHIN REACH. HOB SLIGHTLY ELEVATED AND PT PROVIDED WITH WATER.
--- NOTE | 2019-07-13 00:30 | NUR ---
ILEOSTOMY BAG FOUND TO BE LEAKING; APPARATUS CHANGED AT THIS TIME AND AREA PREPPED WITH SKIN PREP WIPES PRIOR TO ADHESION. PT GOWN AND BED LINENS CHANGED, PT CLEANED THOROUGHLY WITH WARM WIPES. BED EXIT ALARM ACTIVATED AND CALL LIGHT WITHIN REACH.
--- NOTE | 2019-07-13 04:15 | NUR ---
BED EXIT ALARM ACTIVATED AND UPON ENTERING PT ROOM FOUND PT SITTING ON THE FLOOR NEXT TO HER BED. PT STATES SHE WAS "TRYING TO GO TO THE BATHROOM." PT DENIES HAVING PAIN; BLOOD NOTED TO PT LUE AND SCANT AMOUNT ON PT GOWN. SMALL SKIN TEAR NOTED TO L FOREARM. CALLED FOR ASSIST FROM ANOTHER RN AND PT WAS ASSISTED TO STAND AND TRANSFER BACK INTO THE BED. SMALL AMOUNT OF BLOOD TINGED MUCOUS NOTED ON FLOOR WHERE PT HAD FALLEN. UPON FURTHER EXAM BLOOD NOTED TO BE FROM VAGINA, CATHETER IN PLACE. NO OTHER INJURIES NOTED. PT DENIES HITTING HER HEAD. DENIES ANY PAIN. VS OBTAINED AND WNL. PT APPEARS TO BE INCREASINGLY CONFUSED AT THIS TIME, ASKING REPETITIVE QUESTIONS AND DISORIENTED TO PLACE. PT GOWN CHANGED AND DRESSING APPLIED TO SKIN TEAR TO LFA. CALL LIGHT WITHIN REACH AND BED EXIT ALARM REACTIVATED.
[2019-07-13 04:34] VITALS: BP 130/77; PULSE 80; TEMP 98.3
--- NOTE | 2019-07-13 05:19 | NUR ---
DR GIMENEZ CONTACTED REGARDING PT FALL. REPORTED THAT PT FELL OUT OF BED AT APPROX 0415 THIS AM AND DID NOT SUSTAIN ANY MAJOR INJURIES. REPORTED TO DOCTOR THAT PT IS CURRENTLY ON A HEPARIN GTT. NO NEW ORDERS RECEIVED. DOCTOR STATES "JUST WATCH IT."
--- NOTE | 2019-07-13 06:30 | NUR ---
PT HAS BEEN AWAKE MOST OF THE NIGHT WITH INCREASING CONFUSION NOTED. PT HAD A FALL OUT OF BED WHILE ATTEMPTING TO GET UP TO "GO TO THE BATHROOM." PT DID NOT SUSTAIN INJURIES FROM FALL AND DR GIMENEZ WAS NOTIFIED, NO NEW ORDERS RECEIVED. PT CONTINUES TO HAVE IVF AND HEPARIN GTT INFUSING TO PICC LINE IN LUE. WEISS CATH IN PLACE WITH YELLOW URINE NOTED. BED EXIT ALARM ACTIVATED AT ALL TIMES. CALL LIGHT WITHIN REACH.
--- NOTE | 2019-07-13 07:12 | NUR ---
REPORT FROM DAYAMI ZARCO.
[2019-07-13 07:13] LABS: MEAN CELL VOLUME 83 fl (80.0-100.0); MEAN CORPUSCULAR HGB CONC 31 g/dl (33.0-37.0); MEAN PLATELET VOLUME 9.2 fl (7.4-10.4); PLATELET COUNT 192 K/mm3 (130-400); RED BLOOD COUNT 3.29 M/mm3 (4.10-5.30); REDCELL DISTRIBUTION WIDTH-CV 17.5 % (11.5-14.5)
[2019-07-13 07:44] LABS: HEMATOCRIT 27.4 % (37.0-47.0); HEMOGLOBIN 8.5 g/dl (12.5-16.0); MEAN CORPUSCULAR HEMOGLOBIN 26 pg (27.0-31.0)
--- NOTE | 2019-07-13 09:18 | NUR ---
PT RESTING IN BED. CATH CARE AND OSTOMY CARE PROVIDED BY STAFF.IV TO MINDI PICC. FLUIDS AND HEPARIN RUNNING ORDERED.
--- NOTE | 2019-07-13 10:06 | NUR ---
ELHAM faxed updates to Javed at [facility].
[2019-07-13 10:54] LABS: CALCIUM 7.2 mg/dL (8.4-10.2); CREATININE, serum 1.04 (0.52-1.25); POTASSIUM 3.8 mmol/L (3.4-5.0)
[2019-07-13 12:04] VITALS: BP 118/73; PULSE 94; TEMP 98.1
[2019-07-13] MEDS ORDERED: OMNICEF 300MG300 MG PO (12:46)
--- NOTE | 2019-07-13 13:52 | NUR ---
The patient is to discharge this day, 07/13 to [facility] for a alf stay. Javed from [facility] reports that they can transport the patient at 1400. All were in agreeance. SW presented the IM form. The patient understood and signed the form. A copy was provided to the patient and original placed in the chart. There are no additional needs at this time.
--- NOTE | 2019-07-13 15:07 | NUR ---
REPORT CALLED TO [facility]. PT LEFT WITH TRANSPORTATION.
--- NOTE | 2019-07-13 16:49 | NUR ---
REMOVED PICC LINE PT TOLERATED WELL.
== END 2019-07-13 15:08 | DRG 871 ==
LOC: COL.ER 18:00 → ICU 20:21 → SURG 07-12 22:01
PROVIDERS: Family Medicine; Physician Assistant; Student in an Organized Health Care Education/Training Program; ADMIT Hospitalist
PROC: 02HV33Z Insertion of Infusion Device into Superior Vena Cava, Percutaneous Approach (ICD-10-PCS; principal; 2019-07-10)
DX: A41.9 Sepsis, unspecified organism (principal); S72.012A Unspecified intracapsular fracture of left femur, initial encounter for closed fracture; R65.21 Severe sepsis with septic shock; N39.0 Urinary tract infection, site not specified; N17.9 Acute kidney failure, unspecified; E87.3 Alkalosis; E87.2 Acidosis; E44.0 Moderate protein-calorie malnutrition; E87.1 Hypo-osmolality and hyponatremia; F03.90 Unspecified dementia, unspecified severity, without behavioral disturbance, psychotic disturbance, mood disturbance, and anxiety; F32.9 Major depressive disorder, single episode, unspecified; E87.8 Other disorders of electrolyte and fluid balance, not elsewhere classified; R33.9 Retention of urine, unspecified; E16.2 Hypoglycemia, unspecified; E83.42 Hypomagnesemia; E03.9 Hypothyroidism, unspecified; I48.91 Unspecified atrial fibrillation; E87.5 Hyperkalemia; Z90.710 Acquired absence of both cervix and uterus; Z86.718 Personal history of other venous thrombosis and embolism; Z90.49 Acquired absence of other specified parts of digestive tract; Z87.442 Personal history of urinary calculi; Z85.3 Personal history of malignant neoplasm of breast; Z68.21 Body mass index [BMI] 21.0-21.9, adult
CPT/HCPCS: 99223-AI; 99233-AI; 99239; A4216; C1751; J0696; J1644; J1815; J2405; J2543; J3370; J3475; J3480; J7030; J7050; J7060

== ENCOUNTER 2019-07-27 19:35 | Inpatient (IN) | payer MEDICARE, BC ==
[2019-07-27] VITALS (51 sets, daily range): BP systolic 102; BP diastolic 70; PULSE 85; TEMP 97.7; O2SAT 97–99
[~2019-07-27] VITALS: Ht 160 cm; Wt 52.7 kg
[~2019-07-27 19:35] MED LIST changes: +OMNICEF 300MG300 MG PO
[2019-07-27 20:08] LABS: ALBUMIN 4.5 gm/dL (3.5-5.0); BILIRUBIN,TOTAL 1.1 mg/dL (0.0-1.0); CALCIUM 8.9 mg/dL (8.4-10.2); CREATININE, serum 3.31 (0.52-1.25); POTASSIUM 3.9 mmol/L (3.4-5.0); TOTAL PROTEIN 7.9 gm/dL (6.4-8.2)
[2019-07-27 20:20] LABS: TROPONIN-I 0.021 ng/mL (0.000-0.035)
[2019-07-27 20:23] LABS: BASO % 0.2 % (0.0-2.0); GRAN # 9.1 (1.4-6.5); GRAN % 86.9 % (42.2-75.2); HEMATOCRIT 41.1 % (37.0-47.0); HEMOGLOBIN 13.4 g/dl (12.5-16.0); LYMPH # 0.8 (1.2-3.4); LYMPH % 7.2 % (20.0-51.0); MEAN CELL VOLUME 80 fl (80.0-100.0); MEAN CORPUSCULAR HEMOGLOBIN 26 pg (27.0-31.0); MEAN CORPUSCULAR HGB CONC 33 g/dl (33.0-37.0); MEAN PLATELET VOLUME 8.9 fl (7.4-10.4); MONO # 0.5 (0.1-0.6); MONO % 5.1 % (1.7-9.3); PLATELET COUNT 724 K/mm3 (130-400); RED BLOOD COUNT 5.14 M/mm3 (4.10-5.30); REDCELL DISTRIBUTION WIDTH-CV 17.6 % (11.5-14.5)
[2019-07-27 20:26] LABS: COLLECTION METHOD CATHETER
[2019-07-27 20:40] LABS: BUDDING YEAST Present /hpf; MUCOUS Present /lpf; PH 6 (5-8); SQUAMOUS EPITHELIAL 0-2 /hpf; URINE APPEARANCE Hazy; URINE BACTERIA None Seen /hpf; URINE BILIRUBIN Negative (NEGATIVE); URINE BLOOD Negative (NEGATIVE); URINE COLOR Yellow; URINE GLUCOSE Negative (NEGATIVE); URINE KETONE Negative (NEGATIVE); URINE LEUKOCYTE ESTERASE Trace (NEGATIVE); URINE NITRATE Negative (NEGATIVE); URINE PROTEIN(semi-quant) 1+ (NEGATIVE); URINE UROBILINOGEN Negative (NEGATIVE)
[2019-07-27] MEDS ORDERED: NYAMYC100000 U/G TP (21:09)
[2019-07-27] MEDS ORDERED: NORCO 325 MG-51 TAB PO (21:10)
[2019-07-27] MEDS ORDERED: LIDOCAINE HCL100 M1 MM (21:11)
[2019-07-27] MEDS ORDERED: MEGACE ORAL40 MG/ML PO (21:11)
[2019-07-27 23:09] LABS: SALICYLATE < 1.0 mg/dL
[2019-07-27 23:10] LABS: INR 2.1 (0.8-3.0); PROTHROMBIN TIME 25.2 SECONDS (9.7-12.8)
[2019-07-27 23:18] LABS: ACETAMINOPHEN < 10 ug/mL (10-30); ALCOHOL(ethanol),MEDICAL < 10 mg/dL
[2019-07-27 23:20] LABS: TROPONIN-I 0.023 ng/mL (0.000-0.035)
[2019-07-27 23:26] LABS: OSMOLALITY-SERUM 295 Osm/kg (275-300)
[2019-07-27 23:49] LABS: TSH w REFLEX 0.559 uIU/mL (0.465-4.680)
[2019-07-28] VITALS (634 sets, daily range): BP systolic 91–124; BP diastolic 55–88; PULSE 70–96; TEMP 97.6–98.2; O2SAT 71–100
[2019-07-28 03:41] LABS: CALCIUM 6.8 mg/dL (8.4-10.2); CREATININE, serum 2.29 (0.52-1.25); POTASSIUM 3.3 mmol/L (3.4-5.0)
[2019-07-28 03:41] LABS: CREATININE, serum 2.29 (0.52-1.25)
[2019-07-28 05:00] LABS: ARTERIAL BLD GAS O2 SATURATION 94.6 % (92-100); ARTERIAL BLD GAS TCO2 CT 36.8; ARTERIAL BLOOD GAS BASE EXCESS 10.7 (-2-2); ARTERIAL BLOOD GAS HCO3 35.3 meq/L (22-26); ARTERIAL BLOOD GAS PCO2 47.4 mmHg (35-45); ARTERIAL BLOOD GAS PO2 72.2 mmHg (80-100); ARTERIAL BLOOD GAS pH 7.49 (7.35-7.45)
--- NOTE | 2019-07-28 07:20 | NUR ---
Report recieved from HAROLDO Gross. Patient denies pain or needs at this time. MIVF running to right hand peripheral site without complication. Ileostomy to RUQ with scant leakage noted to right side of wafer. Care assumed at this time.
--- NOTE | 2019-07-28 08:30 | NUR ---
Dr. Calvin rounds at this time. Orders as entered CPOE.
[2019-07-28 11:41] LABS: BASO % 0.5 % (0.0-2.0); EOS # 0.1 (0.0-0.7); EOS % 1.1 % (0-4.0); GRAN # 6.1 (1.4-6.5); LYMPH # 1.1 (1.2-3.4); LYMPH % 13.4 % (20.0-51.0); MEAN CELL VOLUME 82 fl (80.0-100.0); MEAN CORPUSCULAR HGB CONC 33 g/dl (33.0-37.0); MEAN PLATELET VOLUME 8.6 fl (7.4-10.4); MONO # 0.9 (0.1-0.6); MONO % 10.5 % (1.7-9.3); RED BLOOD COUNT 3.37 M/mm3 (4.10-5.30); REDCELL DISTRIBUTION WIDTH-CV 17.7 % (11.5-14.5)
[2019-07-28 11:43] LABS: HEMATOCRIT 27.6 % (37.0-47.0); MEAN CORPUSCULAR HEMOGLOBIN 27 pg (27.0-31.0); PLATELET COUNT 526 K/mm3 (130-400)
[2019-07-28 11:51] LABS: ALBUMIN 2.7 gm/dL (3.5-5.0); BILIRUBIN,TOTAL 0.4 mg/dL (0.0-1.0); CALCIUM 6.9 mg/dL (8.4-10.2); CREATININE, serum 2.19 (0.52-1.25); POTASSIUM 3.1 mmol/L (3.4-5.0); TOTAL PROTEIN 5.1 gm/dL (6.4-8.2)
--- NOTE | 2019-07-28 12:09 | NUR ---
Dr. Yap rounds on patient at this time.
--- NOTE | 2019-07-28 12:22 | NUR ---
Racking Machine Operator offered prayer and support with patient.
--- NOTE | 2019-07-28 12:40 | NUR ---
Ileostomy with significant leakage. With take down of existing device severe maceration is noted. Tissue is beefy red and with multiple oozing bloodied areas. Surrounding skin cleansed with personal cleansing wipes and warm water washcloths. Wafer and bag replaced. Adaptic paste used sparingly to interior diameter of wafer. 2.25 inch ilemostomy bag is attached. Judd catheter care provided. Left femoral line dressing with ileostomy drainaged noted. Central line dressing changed using sterile technique. Care ongoing.
--- NOTE | 2019-07-28 14:54 | NUR ---
Ostomy device again with significant leakage. Surrounding skin cleansed with personal cleansing wipes and warm water washcloths. Wafer and bag replaced. Adaptic paste used sparingly to interior diameter of wafer and adaptic powder applied to significantly macerated skin which will lay under adhesive barrier of wafer. 2.25 inch urostomy bag is utilized and attached to dependent drainage bag to facilitate drainage of liquid stool away from site. Repeat leonard catheter care provided. Left femoral line dressing remains CDI. Care ongoing.
--- NOTE | 2019-07-28 22:45 | NUR ---
Ileostomy with significant leakage, device changed out at this time with 2.5" wafer applied. Will continue to monitor at this time.
[2019-07-29] VITALS (257 sets, daily range): BP systolic 94–113; BP diastolic 48–65; PULSE 72–87; TEMP 97.8–98.2; O2SAT 61–100
--- NOTE | 2019-07-29 03:55 | NUR ---
Patient ileostomy continues to leak, reinforced at this time, will continue to monitor.
[2019-07-29 05:30] LABS: BASO % 0.3 % (0.0-2.0); EOS # 0.1 (0.0-0.7); EOS % 2.4 % (0-4.0); GRAN # 4.1 (1.4-6.5); GRAN % 71.3 % (42.2-75.2); LYMPH # 0.9 (1.2-3.4); LYMPH % 16.3 % (20.0-51.0); MEAN CELL VOLUME 83 fl (80.0-100.0); MEAN CORPUSCULAR HGB CONC 32 g/dl (33.0-37.0); MEAN PLATELET VOLUME 8.7 fl (7.4-10.4); MONO # 0.5 (0.1-0.6); MONO % 9.4 % (1.7-9.3); RED BLOOD COUNT 3.11 M/mm3 (4.10-5.30)
[2019-07-29 05:34] LABS: HEMATOCRIT 25.8 % (37.0-47.0); HEMOGLOBIN 8.2 g/dl (12.5-16.0); MEAN CORPUSCULAR HEMOGLOBIN 26 pg (27.0-31.0); PLATELET COUNT 313 K/mm3 (130-400)
[2019-07-29 05:39] LABS: ALBUMIN 2.5 gm/dL (3.5-5.0); BILIRUBIN,TOTAL 0.4 mg/dL (0.0-1.0); CALCIUM 6.8 mg/dL (8.4-10.2); CREATININE, serum 1.49 (0.52-1.25); POTASSIUM 3.2 mmol/L (3.4-5.0); TOTAL PROTEIN 4.8 gm/dL (6.4-8.2)
--- NOTE | 2019-07-29 07:00 | NUR ---
BEDSIDE REPORT RECEIVED FROM HAROLDO THOMAS. PATIENT ILEOSTOMY IS CHANGED D/T MAJOR LEAKAGE. ENTIRE BED CHANGE DONE. ILEOSTOMY APPLIANCE CHANGED. WILL CONTINUE TO MONITOR. DR. WEBSTER CALLED WITH CONSULT
--- NOTE | 2019-07-29 09:00 | NUR ---
ILEOSTOMY LEAKING AT THIS TIME. DR. GIMENEZ IN ROOM. SCRAMBLED EGGS SEEN COMING OUT OF STOMA. DR. GIMENEZ AWARE.
--- NOTE | 2019-07-29 10:15 | NUR ---
DR. WEBSTER HERE TO SEE PATIENT
--- NOTE | 2019-07-29 16:15 | NUR ---
ILEOSTOMY APPLIANCE CHANGED MULTIPLE TIMES TODAY D/T LEAKAGE. DR. WEBSTER SAW PATIENT THIS MORNING AND PLACED ILEOSTOMY APPLIANCE WITH "CRUSTING" METHOD, USING POWDER AND SKIN PREP WIPE. SEE DR. WEBSTER'S NOTE. PATIENT IS EXTREMELY EXCORIATED AND HAS LOTS OF PAIN WHENEVER APPLIANCE IS PLACED/CHANGED.
--- NOTE | 2019-07-29 16:43 | NUR ---
REPORT CALLED TO HAROLDO THOMPSON. PATIENT WILL GO UP TO ROOM 324
--- NOTE | 2019-07-29 16:55 | NUR ---
Patient brought to room via bed by ICU staff. Patient alert but confused on location and year. Able to name president. Denies pain. Line in left groin with dressing CDI, no redness/drainage/edema noted. Ileostomy site excoriated and painful to touch. Most of the wafer is adhered, small amount towards inner stomach that is coming loose. Patient denies needs at this time.
--- NOTE | 2019-07-29 18:16 | NUR ---
Lying in bed with eyes open. Ileostomy bag with 275mL watery brown stool with food fragments noted. Bag emptied at this time. Wafer seal remains intact except for small area closest to inner stomach. Patient is confused and asking what she is suppose to do tonight. Explained that she is in the hospital and she will be sleeping here tonight and the doctor will come in the morning to reassess her. Patient denies pain at this time or any further needs.
--- NOTE | 2019-07-29 20:30 | NUR ---
HAVE EMPTIED ILEOSTOMY X2 SO FAR SINCE 190, LEAKING AT EDGES AND HAD TO BE CHANGED AT THIS TIME. STOOL IS LIQUID WITH PARTICLES OF FOOD NOTED. SKIN IS EXCORIATED BENEATH WAFER. CLEANSED WITH WATER, APPLIED BARRIER FILM AND POWDER THEN BARRIER FILM, AND NEW CONVEX WAFER WITH BAG. WILL MONITOR CLOSELY FOR OUTPUT AND EMPTY FREQUENTLY TO AVOID LEAKAGE.
--- NOTE | 2019-07-29 23:50 | NUR ---
ILEOSTOMY LEAKING AGAIN, CHANGED WAFER BEFORE. DID ATTACH SMALL SOFT ROLL GAUZE TO BAG EDGES, LIKE A BELT TO HOLD BAG SECURE.
--- NOTE | 2019-07-30 05:00 | NUR ---
ILEOSTOMY HAS NOT LEAKED SINCE LAST CHANGE. TAKES AM MED WITH GRAPE JUICE. IV SITE TO LEFT FEMORAL WITHOUT REDNESS OR SWELLING, LABS OBTAINED WITHOUT PROBLEM.
[2019-07-30 05:39] VITALS: BP 112/50; PULSE 88; TEMP 97.3
[2019-07-30 06:52] LABS: BASO % 0.7 % (0.0-2.0); EOS # 0.2 (0.0-0.7); EOS % 4.1 % (0-4.0); GRAN # 3.6 (1.4-6.5); GRAN % 64.6 % (42.2-75.2); LYMPH # 1.2 (1.2-3.4); MEAN CELL VOLUME 84 fl (80.0-100.0); MEAN CORPUSCULAR HGB CONC 31 g/dl (33.0-37.0); MONO # 0.5 (0.1-0.6); MONO % 9.2 % (1.7-9.3); PLATELET COUNT 332 K/mm3 (130-400); RED BLOOD COUNT 3.17 M/mm3 (4.10-5.30); REDCELL DISTRIBUTION WIDTH-CV 18.1 % (11.5-14.5)
[2019-07-30 06:55] LABS: HEMATOCRIT 26.7 % (37.0-47.0); HEMOGLOBIN 8.2 g/dl (12.5-16.0); MEAN CORPUSCULAR HEMOGLOBIN 26 pg (27.0-31.0)
[2019-07-30 07:01] LABS: ALBUMIN 2.3 gm/dL (3.5-5.0); BILIRUBIN,TOTAL 0.3 mg/dL (0.0-1.0); CALCIUM 7.2 mg/dL (8.4-10.2); CREATININE, serum 1.23 (0.52-1.25); POTASSIUM 3.4 mmol/L (3.4-5.0); TOTAL PROTEIN 4.6 gm/dL (6.4-8.2)
[2019-07-30 07:58] VITALS: BP 119/63; PULSE 85; TEMP 97.7
--- NOTE | 2019-07-30 08:00 | NUR ---
Patient in bed resting. Alert and answers questions appropriately. Ostomy to RLQ, ostomy appliance changed due to leaking. Is having liquid output from ostomy. Right femoral site without complications. Refuses breakfast this AM. Assessment complete. Denies further needs at this time. Will continue to monitor.
--- NOTE | 2019-07-30 10:12 | NUR ---
Pt is asleep in room. Breakfast tray is on her bedside table. No family is in the room. I did speak with Scott Rodrigueznes, , by phone and he advises me that he will be at the hospital around 1pm today. I explained briefly what palliative care is and what goals of care they may be pursuing.
[2019-07-30 11:21] VITALS: BP 108/61; PULSE 79; TEMP 98.3
--- NOTE | 2019-07-30 13:54 | NUR ---
Met with pt and her in room along with Catina STEIN to discuss goals of care. Pt and do both acknowledge that the problems she has been experiencing have been repeating themselves. Pt reports she really doesn't have an appetite but does make herself eat. Ostomy care has been challenging with skin breakdown. would really like for a belt to be used with her ostomy to help keep the bag centered and secured. Skin around ostomy is beginning to heal and become less painful. We did discuss that each episode of illness drags Sushila down and makes it harder for her to get back to a good level of functioning. They are willing to consider a feeding tube if need be because they are not ready to stop trying to fight this. This information was relayed to Rocío FARIAS for Dr Jara. They are willing to discuss options but do not want stop treating and move toward hospice at this time.
--- NOTE | 2019-07-30 13:56 | NUR ---
ELHAM and Palliative Care Nurse, Alessandra, met with the patient to discuss the patient's goals of care and peg tube placement, if aggressive care is preferred. The patient and her state that they still want to continue to try and would be open to recommendations. They asked that the hospitalist speak to her PCP for his recommendations and what he thinks about the peg tube. Palliative Care NuseAlessandra, plans to notify to the hospitalist. ELHAM then followed up with the patient and her to discuss discharge plan. The patient recently discharged from the hospital and went to [facility] for a skilled stay. She utilizes a walker and wheelchair. The patiient's PCP is Dr. Mayo Cancino. The patient and her report that the plan is for the patient to return back to [facility] upon discharge. Patient Choice Form signed by the patient's and he was provided a copy. ELHAM contacted and faxed updates to Javed at [facility]. ELHAM to continue to follow.
[2019-07-30 17:26] VITALS: BP 107/54; PULSE 80; TEMP 98
--- NOTE | 2019-07-30 17:51 | NUR ---
Patient has done well throughout the day. Patient able to repositioned for comfort. Ostomy appliance changed x2 today due to leaking, ostomy belt applied. Femoral site without complications, Contacted hospitalist about changing to PICC line or alternative. No new orders at this time. Denies pain or further needs at this time. Will report off to aeronautical products sales engineer.
[2019-07-30 20:00] VITALS: BP 105/49; PULSE 78; TEMP 97.8
--- NOTE | 2019-07-30 20:00 | NUR ---
Report recieved. Assumed care for manufacturing supervisor 2nd shift. Assessment complete. VS stable. A&O to self-confused conversation. Ileostomy noted to be leakingn around adhesive. Hygeine complete-bag changed with stoma protection powder applied. Belt fastened to appliance to help hold in correct position. Denies pain/nausea/shortness of breath. Plan of care discussed for this shift. Denies questions/concerns. Call light in reach. Bed in low/wheels locked. Will monitor.
[2019-07-31] VITALS (7 sets, daily range): BP systolic 90–113; BP diastolic 48–61; PULSE 75–88; TEMP 97.3–98.9
--- NOTE | 2019-07-31 06:59 | NUR ---
Report to HAROLDO Alford
--- NOTE | 2019-07-31 08:43 | NUR ---
Lying in bed with eyes closed. Opens eyes when name called out. Alert but confused on location and year. Ileostomy with watery brown discharge in bag. Site of ileostomy on right abd excoriated. Wafer is intact at this time. Left femoral central line without redness/drainage/edema infusing NS at 75mL/hr. Patient denies pain or needs at this time.
--- NOTE | 2019-07-31 09:26 | NUR ---
Pt is awake and alert sitting up in bed eating her breakfast which she reports is tasting good. She reports she is having a good day today and after requesting a glass of ice water, she denies further needs.
--- NOTE | 2019-07-31 10:10 | NUR ---
Bed bath provided to the patient. Patient helps in turning. Bed linens changed. Removed Mepilex from Stage 2 pressure sore on coccyx. Area cleansed with saline, dried, and new Mepilex applied. Wound bed pink and moist. Patient tolerates all with little difficulty.
--- NOTE | 2019-07-31 10:48 | NUR ---
Imodium administered as prescribed. Patient educated on medication. Verbalizes understanding.
--- NOTE | 2019-07-31 11:08 | NUR ---
Instructed patient on need to remove leonard per doctor orders. Removed 8mL fluid from balloon and catheter removed. Catheter intact. Patient tolerates without difficulty. Instructed the patient that if she needs to urinate to call and we will help her on the bedpan. Patient verbalizes understanding and denies further needs.
--- NOTE | 2019-07-31 12:40 | NUR ---
Left femoral central line discontinued using sterile technique. Site cleansed with chloraprep swab and three alcohol swabs prior to removing. Two sutures removed that were holding line in place. Catheter removed, tip intact. Pressure applied to left femoral site for 20 minutes. Pressure dressing applied to site. Patient tolerates the procedure without difficulty.
--- NOTE | 2019-07-31 13:21 | NUR ---
22 gauge IV started in right forearm x1 stick by this nurse. Blood return received, flushes without difficulty. Site reinforced with tegaderm and tape. Patient tolerates without difficulty. Inspected pressure dressing to left groin. Dressing continues to be CDI. Patient denies pain, concerns, or any needs at this time.
--- NOTE | 2019-07-31 13:22 | NUR ---
ELHAM attended clinical rounds. The patient continues to have diarrhea. She also confirms that she is not ready for hospice at this time. ELHAM contacted and faxed updates to Javed at [facility]. ELHAM to continue to follow.
--- NOTE | 2019-07-31 14:21 | NUR ---
Patient lying supine in bed. Denies pain. Pressure dressing to left groin remains CDI. Patient denies needs at this time.
--- NOTE | 2019-07-31 15:15 | NUR ---
Ileostomy bag coming loose and loose stool on abd and gown. Patient cleaned. Removed previous ostomy bag. Area cleansed with water. Applied powder and skin protectant. New device applied. Patient tolerates well. Site still excoriated.
--- NOTE | 2019-07-31 17:57 | NUR ---
Patient denies need to urinate at this time. Bladder scan performed and 172mL seen on scan. Patient placed on bed rocha to see if she could urinate.
--- NOTE | 2019-07-31 18:05 | NUR ---
Patient unable to urinate at this time. Denies pain or feeling as if bladder is full. Wafer for ileostomy intact at this time. Small amount of brown watery stool noted in bag. Dressing to left groin remains CDI. Patient denies further needs at this time.
--- NOTE | 2019-08-01 00:47 | NUR ---
PATIENT DOING WELL TONIGHT. MINIMAL C/O PAIN, STATING HER PAIN IS MOSTLY IN HER BACK. ILLEOSTOMY HAVING GOOD OUTPUT, BAG NEEDING EMPTIED Q2 HOURS OR SOONER. OUTPUT IS GIRON/GREEN AND LIQUIDY. STAGE 2 ULCER TO COCCYX IS DRESSED WITH MEPOPLEX. OLD L FEMORAL LINE HAS PRESSURE DRESSING TO SITE. R FA INT IS PATENT AND FLUSHES. STRAIGHT CATH AT 0000 SHOWED 450 IN BLADDER. STRAIGHT CATH PER DR GIMENEZ. 350 OF CLEAR YELLOW URINE OUT. HAS BEEN RESTING COMFORTABLY OTHERWISE. TOOK SCHEDULED MEDICATIONS WITHOUT DIFFICULTY. NO FURTHER NEEDS AT THIS TIME, WILL CONTINUE TO MONITOR.
[2019-08-01 04:00] VITALS: BP 122/72; PULSE 82; TEMP 97.5
[2019-08-01 07:05] VITALS: BP 96/52; PULSE 74; TEMP 97.3
[2019-08-01 08:16] LABS: BASO # 0.1 (0.0-0.2); EOS # 0.3 (0.0-0.7); EOS % 4.4 % (0-4.0); GRAN # 5.1 (1.4-6.5); GRAN % 71.9 % (42.2-75.2); LYMPH # 1.1 (1.2-3.4); LYMPH % 15.8 % (20.0-51.0); MEAN CELL VOLUME 83 fl (80.0-100.0); MEAN CORPUSCULAR HGB CONC 31 g/dl (33.0-37.0); MEAN PLATELET VOLUME 8.7 fl (7.4-10.4); MONO # 0.4 (0.1-0.6); MONO % 6.3 % (1.7-9.3); PLATELET COUNT 271 K/mm3 (130-400); RED BLOOD COUNT 3.27 M/mm3 (4.10-5.30); REDCELL DISTRIBUTION WIDTH-CV 17.9 % (11.5-14.5)
[2019-08-01 08:17] LABS: HEMATOCRIT 27.2 % (37.0-47.0); HEMOGLOBIN 8.5 g/dl (12.5-16.0); MEAN CORPUSCULAR HEMOGLOBIN 26 pg (27.0-31.0)
[2019-08-01 08:34] LABS: CREATININE, serum 1.04 (0.52-1.25); POTASSIUM 3.6 mmol/L (3.4-5.0)
[2019-08-01 12:00] VITALS: BP 101/54; PULSE 91; TEMP 98.2
--- NOTE | 2019-08-01 14:47 | NUR ---
ELHAM contacted and faxed updates to Javed at [facility]. ELHAM to continue to follow.
[2019-08-01 16:00] VITALS: BP 98/69; PULSE 67; TEMP 98
--- NOTE | 2019-08-01 19:31 | NUR ---
Patient resting in bed. She is in positive spirits. Her ostomy appliance has been changed 3 times today. Her output is consistant with what she eats. Undigested food visable, such as spinach. Her skin beneth wafer is very excoriated. Crusting technique was used per orders. It is difficult to get new appliance placed fast enough because output is so great. Attempted to use barrier ring, was unsuccessful. I attempted placing illeostomy to leonard bag to keep it decompressed, but there was too much undigested food to move through bag. She continues to have large amounts of stool out. Hygiene & fresh linens provided as needed. Bladder scan this evening showed 480-hospitalist notifed-straight cath placed. Patient eats well, good appetite. Activity increased today, up with therapy, she sat in chair. Allyven foam intact to coccyx. Fresh socks on, feet noted to be very flaky. Lotion on. Int. L.femoral site dressing change, brusing noted. Report to Adriana Rn who will resume care
[2019-08-01 20:00] VITALS: BP 97/54; PULSE 77; TEMP 97.7
--- NOTE | 2019-08-01 21:40 | NUR ---
PATIENT HAS MINIMAL LEAKAGE FROM OSTOMY, CLEANSED AND PLACED TEGADERM OVER EDGE TO PREVENT NEEDING TO CHANGE APPLIANCE COMPLETELY. PT IS ALERT AND ORIENTED X3. HAS SL TO RIGHT FOREARM WITHOUT REDNESS OR SWELLING. DENIES PAIN. TAKES HS MEDS WITHOUT PROBLEM. HAS DRSG TO LEFT GROIN FROM PREVIOUS FEMORAL IV SITE. HAS MEPILEX TO COCCYX COVERING STAGE II ULCER. WILL BE NPO AT MIDNIGHT FOR SCOPE OF ILEOSTOMY AT 1230 08/02/19.
[2019-08-01 23:53] VITALS: BP 98/56; PULSE 73; TEMP 97.8
[2019-08-02] VITALS (13 sets, daily range): BP systolic 100–115; BP diastolic 52–96; PULSE 56–87; TEMP 97.5–98.7
--- NOTE | 2019-08-02 03:50 | NUR ---
Bladder scanned patient for 660, prior to catherizing patient was incontinent of large amount of urine. Rescanned for 440cc. Straight cathed for 400cc of yellow urine. Rescanned and result showed 405cc left in bladder. Changed ostomy appliance at this time due to leaking. Patient tolerated procedures without problem.
--- NOTE | 2019-08-02 06:30 | NUR ---
AM med with sip of water. No concerns offered. NPO for scope procedure at 1230 today.
--- NOTE | 2019-08-02 10:15 | NUR ---
Patient alert and oriented, answers questions appropriately. See assessment. Abdomen soft, non tender, non distended. Bowel sounds active x4 quads. +Flatus in ostomy bag. Skin around ostomy excoriated. Reddened area noted to coccyx. No c/o pain or discomfort.
--- NOTE | 2019-08-02 10:29 | NUR ---
Met with pt at this time. She is sitting in her recliner and reading the paper. She reports feeling better each day. Her ostomy has been monitored closely and the skin irritation has cleared significantly. She reports that she is eating better and drinking better. They are closely monitoring her bladder output. No family is in the room at this time. She again states that she is not ready for hospice services at this time and "thinks they can keep fighting for some time". She did talk about going back home to settle in for senior living in [place] which is where they are from originally. Support provided and will continue to follow along. States that they feel very comfortable with Dr Cancino and the guidance that they get from him.
--- NOTE | 2019-08-02 11:11 | NUR ---
First visit from the head of operation and logistics. No needs right now.
--- NOTE | 2019-08-02 13:30 | NUR ---
Patient to EGD at this time.
--- NOTE | 2019-08-02 14:15 | NUR ---
Patient returns from EGD, assessment unchanged.
--- NOTE | 2019-08-02 14:26 | NUR ---
The patient had an EGD with/ileoscopy today. Urology is recommending scheduled intermittent catheterization three times per day at [facility]. ELHAM contacted and faxed updates to Javed at [facility]. Javed reports that he will check to make sure that they are able to do the intermittent catherization. ELHAM to continue to follow.
--- NOTE | 2019-08-02 22:00 | NUR ---
PATIENT IN BED, ILEOSTOMY SITE LEAKING AROUND EDGES, COMPLETE TAKE DOWN OF APPLIANCE AND NEW OSTOMY WAFER/BAG APPLIED. EXCORIATION AROUND ILEOSTOMY SITE REMAINS. PATIENT HAS REDNESS BETWEEN LEGS, FUNGAL POWDER APPLIED. PATIENT IS ALERT, ORIENTED X2. SL TO RIGHT FOREARM WITHOUT REDNESS OR SWELLING. HS MEDS GIVEN AT THIS TIME.
--- NOTE | 2019-08-03 04:00 | NUR ---
Patient has had no further leaking from ileostomy. Bladder scanned for 300cc. Patient urinated in bathroom before going to bed last night.
[2019-08-03 04:50] VITALS: BP 106/56; PULSE 74; TEMP 98.5
[2019-08-03 06:58] LABS: BASO % 0.6 % (0.0-2.0); EOS # 0.3 (0.0-0.7); EOS % 3.7 % (0-4.0); GRAN # 4.8 (1.4-6.5); GRAN % 68.7 % (42.2-75.2); HEMATOCRIT 26.7 % (37.0-47.0); HEMOGLOBIN 8.4 g/dl (12.5-16.0); LYMPH # 1.3 (1.2-3.4); LYMPH % 18.2 % (20.0-51.0); MEAN CELL VOLUME 83 fl (80.0-100.0); MEAN CORPUSCULAR HEMOGLOBIN 26 pg (27.0-31.0); MEAN CORPUSCULAR HGB CONC 32 g/dl (33.0-37.0); MEAN PLATELET VOLUME 9.6 fl (7.4-10.4); MONO # 0.6 (0.1-0.6); MONO % 8.5 % (1.7-9.3); PLATELET COUNT 288 K/mm3 (130-400); RED BLOOD COUNT 3.21 M/mm3 (4.10-5.30); REDCELL DISTRIBUTION WIDTH-CV 17.6 % (11.5-14.5)
[2019-08-03 07:12] LABS: CALCIUM 7.1 mg/dL (8.4-10.2); CREATININE, serum 0.92 (0.52-1.25); POTASSIUM 3.1 mmol/L (3.4-5.0)
[2019-08-03 08:36] VITALS: BP 92/56; PULSE 75; TEMP 97.9
--- NOTE | 2019-08-03 08:48 | NUR ---
Lying in bed with eyes closed. Opens eyes when name called out. Patient is pleasantly confused. Denies pain at this time. Ileostomy site with wafer mostly intact, small portion coming loose that is near umbilicus. Dark brown/green watery stool noted in bag. Stomach area to ileostomy site red, patient explains that it is less painful than it has been. Left groin with bruising noted. Patient denies needs at this time.
--- NOTE | 2019-08-03 09:15 | NUR ---
Ileostomy leaking. Removed wafer. Area cleansed with wash cloth and water. Dried area. Applied skin protectant along with powder to site. Applied new wafer with ostomy bag attached. Patient tolerates procedure well. Assisted patient up to bed with assist of one. Gait slow and steady. Patient explains that she is tired this morning. Continues to deny pain or further needs at this time. Remains sitting up in chair.
--- NOTE | 2019-08-03 11:36 | NUR ---
Javed, at [facility], reports that they are able to do the intermittent catheterization. ELHAM informed the clinical team. The patient is to discharge today, 08/03, back to [facility] for a skilled stay. Transportation was sheduled for around 1600, via [facility]. ELHAM informed the patient's RN and her (Scott), via phone. They were both in agreeance to the time. ELHAM also explained the IM form to the patient's , via phone. The patient's gave ELHAM his verbal consent. No additional needs at this time.
[2019-08-03 12:27] VITALS: BP 99/51; PULSE 75; TEMP 98.6
--- NOTE | 2019-08-03 12:45 | NUR ---
Patient ambulates with walker and assist of one to bathroom. Able to void without difficulty. Returns to bed at this time. Ileostomy site leaking around wafer. Rola RN, and this nurse remove previous ileostomy wafer and bag. Site cleaned with wash cloth and water. Area dried. Applied powder and skin protectant to site and new wafer and bag applied. Patient rolled to right side. Mepilex removed from stage 2 pressure ulcer on coccyx, cleaned with wash cloth and water. Site dried. Wound bed moist and pink. New mepilex applied to site. Patient tolerates without difficulty. Assisted to comfortable postion. Patient denies further needs at this time.
--- NOTE | 2019-08-03 13:35 | NUR ---
Report called to Phuong Piper [facility] using SBAR.
[2019-08-03] MEDS ORDERED: QUESTRAN4 GM/9 GM PO (14:37)
[2019-08-03] MEDS ORDERED: ELIQUIS 2.5 PO (14:37)
[2019-08-03] MEDS ORDERED: SLOW-MAG71.5 MG PO (14:39)
[2019-08-03] MEDS ORDERED: METAMUCIL3.4 GM/DOS PO (14:39)
[2019-08-03] MEDS ORDERED: ANTI-DIARRHEAL2 MG PO (14:40)
[2019-08-03 15:23] VITALS: BP 91/57; PULSE 82; TEMP 98.4
--- NOTE | 2019-08-03 15:40 | NUR ---
Ileostomy wafer coming loose and patient is about to discharge back to [facility]. Removed wafer and bag. Area cleaned with warm water and wash cloth. Site dried. Applied skin protectant and powder to ileostomy site. New wafer and bag applied. Patient tolerates procedure without difficulty.
--- NOTE | 2019-08-03 16:05 | NUR ---
[facility] staff presents with clothes and wheel chair. Patient ambulates to bathroom with assist of this nurse. Gait slow and steady. Patient voids while sitting on toilet. Patient changed into personal clothes. Assisted into room and into wheelchair. Personal belongings provided to the [facility] staff. IV to right forearm discontinued with catheter intact. Applied 2x2's to site and reinforced with coban. Discharge packet provided to [facility] staff. Patient escorted out via wheelchair with [facility] staff.
== END 2019-08-03 16:05 | DRG 698 ==
LOC: COL.ER 19:35 → SURG 19:41 → ICU 19:41 → SURG 07-29 17:44
PROVIDERS: Emergency Medicine; Nurse Practitioner Family; Physician Assistant; ADMIT Internal Medicine
PROC: 05HY33Z Insertion of Infusion Device into Upper Vein, Percutaneous Approach (ICD-10-PCS; principal; 2019-07-29)
DX: T83.511A Infection and inflammatory reaction due to indwelling urethral catheter, initial encounter (principal); A41.51 Sepsis due to Escherichia coli [E. coli]; R65.21 Severe sepsis with septic shock; E43 Unspecified severe protein-calorie malnutrition; N17.9 Acute kidney failure, unspecified; E87.1 Hypo-osmolality and hyponatremia; E87.3 Alkalosis; I48.20 Chronic atrial fibrillation, unspecified; N13.30 Unspecified hydronephrosis; K94.12 Enterostomy infection; N39.0 Urinary tract infection, site not specified; F03.90 Unspecified dementia, unspecified severity, without behavioral disturbance, psychotic disturbance, mood disturbance, and anxiety; I10 Essential (primary) hypertension; E03.9 Hypothyroidism, unspecified; R33.9 Retention of urine, unspecified; Z85.3 Personal history of malignant neoplasm of breast; E86.0 Dehydration; L25.9 Unspecified contact dermatitis, unspecified cause; E87.5 Hyperkalemia; R73.9 Hyperglycemia, unspecified; D64.9 Anemia, unspecified; R19.7 Diarrhea, unspecified; Z85.42 Personal history of malignant neoplasm of other parts of uterus; I95.1 Orthostatic hypotension; E87.8 Other disorders of electrolyte and fluid balance, not elsewhere classified; Z79.2 Long term (current) use of antibiotics; Z86.718 Personal history of other venous thrombosis and embolism; F32.9 Major depressive disorder, single episode, unspecified; Z90.710 Acquired absence of both cervix and uterus; Z90.49 Acquired absence of other specified parts of digestive tract; Z79.01 Long term (current) use of anticoagulants
CPT/HCPCS: 99223-AI; 99232-AI; 99233-AI; 99239; A4216; C1751; J0696; J2704; J3475; J3480; J7030; J7060

== ENCOUNTER → 2019-11-23 | Outpatient (CLI) | payer MEDICARE, BC ==
[~2019-11-23] MED LIST changes: +ANTI-DIARRHEAL2 MG PO; +CRANBERRY450 MG PO; +ELIQUIS 2.5 PO; +FERRO-TIME325 MG PO; +LIDOCAINE HCL100 M1 MM; +MAG-OX 400400 MG/TAB PO; +MEGACE ORAL40 MG/ML PO; +METAMUCIL3.4 GM/DOS PO; +NYAMYC100000 U/G TP; +PHOSPHA 250 NEU1 TAB PO; +PROTONIX 40MG T40 MG PO; +QUESTRAN4 GM/9 GM PO; +SLOW-MAG71.5 MG PO
[2019-11-23 11:53] LABS: BASO # 0.1 (0.0-0.2); EOS # 0.3 (0.0-0.7); EOS % 3.4 % (0-4.0); GRAN # 5.6 (1.4-6.5); GRAN % 70.9 % (42.2-75.2); LYMPH # 1.2 (1.2-3.4); LYMPH % 15.4 % (20.0-51.0); MEAN CELL VOLUME 85 fl (80.0-100.0); MEAN CORPUSCULAR HGB CONC 31 g/dl (33.0-37.0); MEAN PLATELET VOLUME 9.2 fl (7.4-10.4); MONO # 0.7 (0.1-0.6); MONO % 8.5 % (1.7-9.3); PLATELET COUNT 305 K/mm3 (130-400); RED BLOOD COUNT 3.47 M/mm3 (4.10-5.30); REDCELL DISTRIBUTION WIDTH-CV 18.6 % (11.5-14.5)
[2019-11-23 11:55] LABS: HEMATOCRIT 29.4 % (37.0-47.0); HEMOGLOBIN 9.1 g/dl (12.5-16.0); MEAN CORPUSCULAR HEMOGLOBIN 26 pg (27.0-31.0)
[2019-11-23 12:03] LABS: MAGNESIUM 1.1 mg/dL (1.6-2.3); PHOSPHOROUS 3.5 mg/dL (2.5-4.5)
== END ==
LOC: ZLAB.STJ 10:58
PROVIDERS: Family Medicine
DX: I10 Essential (primary) hypertension (principal); D64.9 Anemia, unspecified

== ENCOUNTER → 2020-01-04 | Outpatient (CLI) | payer MEDICARE, BC ==
[2020-01-04 13:18] LABS: CALCIUM 9.1 mg/dL (8.4-10.2); CREATININE, serum 1.35 (0.52-1.25); POTASSIUM 5.3 mmol/L (3.4-5.0)
== END ==
LOC: ZLAB.STJ 12:09
PROVIDERS: Nurse Practitioner
DX: I10 Essential (primary) hypertension (principal)

== ENCOUNTER → 2020-01-10 | Outpatient (CLI) | payer MEDICARE, BC | LOC: ZLAB.STJ 11:11 | DX: I48.91 Unspecified atrial fibrillation (principal) ==

== ENCOUNTER 2020-02-14 07:23 | Inpatient (IN) | payer MEDICARE, BC ==
[2020-02-14] VITALS (12 sets, daily range): BP systolic 71–161; BP diastolic 38–94; PULSE 84–118; TEMP 97.8–98.8
[~2020-02-14] VITALS: Ht 167.6 cm; Wt 60.5 kg
[2020-02-14 07:54] LABS: HEMATOCRIT 43.8 % (37.0-47.0); HEMOGLOBIN 15.2 g/dl (12.5-16.0); MEAN CELL VOLUME 81 fl (80.0-100.0); MEAN CORPUSCULAR HEMOGLOBIN 28 pg (27.0-31.0); MEAN CORPUSCULAR HGB CONC 35 g/dl (33.0-37.0); MEAN PLATELET VOLUME 8.8 fl (7.4-10.4); PLATELET COUNT 426 K/mm3 (130-400); RED BLOOD COUNT 5.42 M/mm3 (4.10-5.30); REDCELL DISTRIBUTION WIDTH-CV 13.8 % (11.5-14.5)
[2020-02-14 08:02] LABS: INR 1.6 (0.8-3.0); PROTHROMBIN TIME 17.5 SECONDS (9.7-12.8)
[2020-02-14 08:08] LABS: ALANINE AMINOTRANSFERASE 16 U/L (4-34); ALBUMIN 4.6 gm/dL (3.5-5.0); ALKALINE PHOSPHATASE 84 U/L (50-136); ANION GAP 22 mmol/L (7-16); AST,SGOT 27 U/L (15-37); BILIRUBIN,TOTAL 0.9 mg/dL (0.0-1.0); CALCIUM 9.1 mg/dL (8.4-10.2); CARBON DIOXIDE 27 mmol/L (22-30); GLUCOSE 128 mg/dL (74-106); TOTAL PROTEIN 7.9 gm/dL (6.4-8.2)
[2020-02-14 08:11] LABS: CREATININE, serum 5.28 (0.52-1.25)
[2020-02-14 08:13] LABS: BLOOD UREA NITROGEN 160 mg/dL (7-17)
[2020-02-14 08:15] LABS: C-REACTIVE PROTEIN < 0.5 mg/dL (0.0-0.9)
[2020-02-14 08:17] LABS: SODIUM 118 mmol/L (137-145)
[2020-02-14 08:18] LABS: CHLORIDE 69 mmol/L (98-107); POTASSIUM 7.6 mmol/L (3.4-5.0)
[2020-02-14] MEDS ORDERED: ONE-A-DAY ESSE1 EACH PO (08:18)
[2020-02-14 08:19] LABS: TROPONIN-I < 0.012 ng/mL (0.000-0.035)
[2020-02-14] MEDS ORDERED: ELIQUIS 2.5 PO (08:19)
[2020-02-14] MEDS ORDERED: MASON NATURAL2000 IU PO (08:20)
[2020-02-14] MEDS ORDERED: ZOLOFT 50MG50 MG PO (08:21)
[2020-02-14 08:22] LABS: BAND 3 % (0-10); LYMPHOCYTE 3 % (20.0-51.0); NEUTROPHILS 92 % (42.0-75.2)
[2020-02-14] MEDS ORDERED: MAGNESIUM250 M1 PO (08:22)
[2020-02-14] MEDS ORDERED: LANOXIN 0.120.125 MG PO (08:22)
[2020-02-14 08:23] LABS: PLATELET ESTIMATE NORMAL (NORMAL)
[2020-02-14] MEDS ORDERED: FLAGYL500 MG PO (08:23)
[2020-02-14 09:18] LABS: COLLECTION METHOD CLEAN CATCH
[2020-02-14 09:27] LABS: PH 6 (5-8); SQUAMOUS EPITHELIAL None Seen /hpf; URINE APPEARANCE Cloudy; URINE BACTERIA Moderate /hpf; URINE BILIRUBIN Negative (NEGATIVE); URINE BLOOD Negative (NEGATIVE); URINE COLOR Yellow; URINE GLUCOSE 3+ (NEGATIVE); URINE KETONE Negative (NEGATIVE); URINE LEUKOCYTE ESTERASE 3+ (NEGATIVE); URINE NITRATE Negative (NEGATIVE); URINE PROTEIN(semi-quant) 1+ (NEGATIVE); URINE UROBILINOGEN Negative (NEGATIVE)
[2020-02-14 11:54] LABS: CALCIUM 7.3 mg/dL (8.4-10.2)
[2020-02-14 12:00] LABS: CREATININE, serum 4.24 (0.52-1.25)
[2020-02-14 13:06] LABS: CREATININE, serum 4.3 (0.52-1.25)
[2020-02-14 13:07] LABS: FRACTIONAL EXCRETION OF NA+ 1.1 %
[2020-02-14 16:55] LABS: CALCIUM 7.2 mg/dL (8.4-10.2); POTASSIUM 4.9 mmol/L (3.4-5.0)
[2020-02-14 16:57] LABS: HEMATOCRIT 32.4 % (37.0-47.0); HEMOGLOBIN 10.9 g/dl (12.5-16.0)
[2020-02-14 17:01] LABS: CREATININE, serum 3.76 (0.52-1.25)
--- NOTE | 2020-02-14 20:00 | NUR ---
Patient resting in bed quietly with eyes closed and face tense. Patient opens eyes to voice. Only oriented to self. Patient appears to be in pain but she denies despite wincing with any touch and cursing out loud with any movement. Offered food and drink, denies both. assessment complete, see shift assessment. Vitals obtained and remain stable on current dose of levophed. Will titrate as needed. No further needs at this time. Will continue to monitor. call light within reach.
[2020-02-14 20:53] LABS: CALCIUM 7.1 mg/dL (8.4-10.2); CREATININE, serum 3.46 (0.52-1.25); POTASSIUM 4.7 mmol/L (3.4-5.0)
--- NOTE | 2020-02-14 22:00 | NUR ---
Went to turn patient at this time and found some black starry stool on bedding from her rectum, very small amount. Went to clean up patient and found some brandee colored, almost ireland, stool at the rectum. Bleeding is also noted around the leonard. Cleaned patient with personal cleansing wipes and repositoned for comfort.
[2020-02-14 23:08] LABS: HEMOGLOBIN 10.2 g/dl (12.5-16.0)
[2020-02-14 23:09] LABS: HEMATOCRIT 30.5 % (37.0-47.0)
[2020-02-15] VITALS (16 sets, daily range): BP systolic 85–153; BP diastolic 45–91; PULSE 72–98; TEMP 97–98.1
--- NOTE | 2020-02-15 02:15 | NUR ---
Patient's ostomy site found to be leaking. Changed all appliances. Cleaned skin with cleansing wipes, applied skin protectant and ostomy paste to appliance. Appears to have a good seal. Will continue to monitor.
[2020-02-15 06:09] LABS: MEAN CELL VOLUME 84 fl (80.0-100.0); MEAN CORPUSCULAR HGB CONC 33 g/dl (33.0-37.0); MEAN PLATELET VOLUME 8.9 fl (7.4-10.4); RED BLOOD COUNT 3.53 M/mm3 (4.10-5.30); REDCELL DISTRIBUTION WIDTH-CV 14.1 % (11.5-14.5)
[2020-02-15 06:21] LABS: ALBUMIN 2.5 gm/dL (3.5-5.0); BILIRUBIN,TOTAL 0.7 mg/dL (0.0-1.0); CREATININE, serum 2.96 (0.52-1.25); MAGNESIUM 1.7 mg/dL (1.6-2.3); PHOSPHOROUS 4.5 mg/dL (2.5-4.5); POTASSIUM 4.3 mmol/L (3.4-5.0)
[2020-02-15 06:23] LABS: HEMATOCRIT 29.7 % (37.0-47.0); HEMOGLOBIN 9.9 g/dl (12.5-16.0); MEAN CORPUSCULAR HEMOGLOBIN 28 pg (27.0-31.0)
[2020-02-15 06:24] LABS: PLATELET COUNT 291 K/mm3 (130-400)
--- NOTE | 2020-02-15 07:25 | NUR ---
Bedside report given to HAROLDO Cruz
[2020-02-15 07:50] LABS: BAND 5 % (0-10); LYMPHOCYTE 1 % (20.0-51.0); METAMYELOCYTE 1 % (0-0); NEUTROPHILS 89 % (42.0-75.2); OVALOCYTES 1+
[2020-02-15 07:51] LABS: PLATELET ESTIMATE NORMAL (NORMAL)
--- NOTE | 2020-02-15 12:15 | NUR ---
Levophed discontinued.
--- NOTE | 2020-02-15 13:10 | NUR ---
drug abuse worker contacted patient's , Scott #[phone] to discuss discharge planning. Patient resides in long term care social worker care at [facility] and spouse plans for patient to return upon discharge. Worker contacted Javed at [facility] and confirmed that they will accept patient upon discharge. Patient's primary care provider is Dr Cancino.
--- NOTE | 2020-02-15 13:30 | NUR ---
Levophed remains off, current BP 120/73
--- NOTE | 2020-02-15 20:17 | NUR ---
Phone update provided to nephrology. Reducing IVF to 75ml/hr. SCDs to promote fluid movement/circulation, as LE now showing 1-2 edema
[2020-02-16] VITALS (7 sets, daily range): BP systolic 98–113; BP diastolic 41–58; PULSE 67–74; TEMP 97.3–99
--- NOTE | 2020-02-16 03:59 | NUR ---
Resting in bed with eyes shut; assisted with repositioning. Denies any needs at this time.
[2020-02-16 05:35] LABS: BASO % 0.2 % (0.0-2.0); EOS # 0.2 (0.0-0.7); EOS % 1.5 % (0-4.0); GRAN # 9.4 (1.4-6.5); GRAN % 85.2 % (42.2-75.2); LYMPH # 0.6 (1.2-3.4); LYMPH % 5.1 % (20.0-51.0); MEAN CELL VOLUME 86 fl (80.0-100.0); MEAN CORPUSCULAR HGB CONC 33 g/dl (33.0-37.0); MEAN PLATELET VOLUME 8.8 fl (7.4-10.4); MONO # 0.8 (0.1-0.6); MONO % 7.1 % (1.7-9.3); RED BLOOD COUNT 2.96 M/mm3 (4.10-5.30); REDCELL DISTRIBUTION WIDTH-CV 14.6 % (11.5-14.5)
[2020-02-16 05:43] LABS: HEMATOCRIT 25.5 % (37.0-47.0); HEMOGLOBIN 8.3 g/dl (12.5-16.0); MEAN CORPUSCULAR HEMOGLOBIN 28 pg (27.0-31.0)
[2020-02-16 05:45] LABS: PLATELET COUNT 168 K/mm3 (130-400)
[2020-02-16 05:55] LABS: ALBUMIN 2.1 gm/dL (3.5-5.0); BILIRUBIN,TOTAL 0.6 mg/dL (0.0-1.0); CALCIUM 6.9 mg/dL (8.4-10.2); CREATININE, serum 2.02 (0.52-1.25); POTASSIUM 3.5 mmol/L (3.4-5.0); TOTAL PROTEIN 4.2 gm/dL (6.4-8.2)
--- NOTE | 2020-02-16 14:21 | NUR ---
Patient up to room 323 from ICU. Refusing lunch at this time. Oriented to room, patient in isolation precautions. Denies further needs at this time.
--- NOTE | 2020-02-16 18:05 | NUR ---
Ostomy appliance changed, Bed bath provided to patient. Mepliex to sacrum is CDI. Judd to dependent drainage. Abrasions noted to back. PICC line to MINDI. Eccymosis to left arm noted. INT to right forarm. Heel protectors in place. Skin tear to left forarm with gauze and tegaderm is CDI. Assisted patient to eat supper. Denies further needs at this time.
--- NOTE | 2020-02-16 18:22 | NUR ---
Patient doing well this afternoon, Denies pain. WIll report off to tiger machine operator.
[2020-02-17 03:51] VITALS: BP 106/54; PULSE 79; TEMP 98.7
[2020-02-17 06:23] LABS: BASO % 0.2 % (0.0-2.0); EOS # 0.2 (0.0-0.7); EOS % 1.8 % (0-4.0); GRAN % 87.7 % (42.2-75.2); LYMPH # 0.6 (1.2-3.4); LYMPH % 4.6 % (20.0-51.0); MEAN CELL VOLUME 85 fl (80.0-100.0); MEAN CORPUSCULAR HGB CONC 33 g/dl (33.0-37.0); MEAN PLATELET VOLUME 9.1 fl (7.4-10.4); MONO # 0.7 (0.1-0.6); MONO % 5.4 % (1.7-9.3); PLATELET COUNT 183 K/mm3 (130-400); RED BLOOD COUNT 2.92 M/mm3 (4.10-5.30); REDCELL DISTRIBUTION WIDTH-CV 14.5 % (11.5-14.5)
[2020-02-17 06:34] LABS: HEMATOCRIT 24.9 % (37.0-47.0); HEMOGLOBIN 8.3 g/dl (12.5-16.0); MEAN CORPUSCULAR HEMOGLOBIN 28 pg (27.0-31.0)
[2020-02-17 06:35] LABS: ALBUMIN 2.1 gm/dL (3.5-5.0); BILIRUBIN,TOTAL 0.6 mg/dL (0.0-1.0); CALCIUM 7.1 mg/dL (8.4-10.2); CREATININE, serum 1.54 (0.52-1.25); POTASSIUM 3.3 mmol/L (3.4-5.0); TOTAL PROTEIN 4.3 gm/dL (6.4-8.2)
--- NOTE | 2020-02-17 07:29 | NUR ---
PATIENT SLEEPING IN BED. NO SIGNS OF DISTRESS NOTED
[2020-02-17 07:43] VITALS: BP 140/43; PULSE 56; TEMP 98.6
[2020-02-17 07:53] VITALS: BP 106/42; BP 97/63; PULSE 67; PULSE 74; TEMP 97.6; TEMP 98.2
--- NOTE | 2020-02-17 08:49 | NUR ---
PATIENT ASSESSMENT COMPLETED. SHE IS ALERT AND EATTING BREAKFAST. SHE IS ORIENTED TO HER NAME AND THAT SHE IS IN [facility] DOESN'T KNOW PLACE OR TIME. EATING WITHOUT DIFFICULTY AND SWALLOWS PILLS WITHOUT TROUBLE. SHE DENIES PAIN. ILIOSTOMY IS INTACT AND EMPTIED.
[2020-02-17 12:14] VITALS: BP 105/61; PULSE 78; TEMP 98.4
[2020-02-17 15:10] VITALS: BP 99/52; PULSE 74; TEMP 98.1
[2020-02-17 20:21] VITALS: BP 102/55; PULSE 88; TEMP 98.6
[2020-02-18] VITALS (7 sets, daily range): BP systolic 94–138; BP diastolic 58–75; PULSE 73–91; TEMP 97.4–98.7
[2020-02-18 07:03] LABS: CALCIUM 7.3 mg/dL (8.4-10.2); CREATININE, serum 1.23 (0.52-1.25); POTASSIUM 3.8 mmol/L (3.4-5.0)
[2020-02-18 07:23] LABS: BASO % 0.1 % (0.0-2.0); EOS # 0.2 (0.0-0.7); EOS % 1.3 % (0-4.0); GRAN # 12.7 (1.4-6.5); GRAN % 89.3 % (42.2-75.2); LYMPH # 0.6 (1.2-3.4); LYMPH % 3.9 % (20.0-51.0); MEAN CELL VOLUME 86 fl (80.0-100.0); MEAN CORPUSCULAR HGB CONC 33 g/dl (33.0-37.0); MEAN PLATELET VOLUME 9.6 fl (7.4-10.4); MONO # 0.7 (0.1-0.6); MONO % 4.9 % (1.7-9.3); PLATELET COUNT 180 K/mm3 (130-400); RED BLOOD COUNT 3.03 M/mm3 (4.10-5.30); REDCELL DISTRIBUTION WIDTH-CV 14.6 % (11.5-14.5)
[2020-02-18 07:25] LABS: HEMATOCRIT 25.9 % (37.0-47.0); HEMOGLOBIN 8.5 g/dl (12.5-16.0); MEAN CORPUSCULAR HEMOGLOBIN 28 pg (27.0-31.0)
--- NOTE | 2020-02-18 07:30 | NUR ---
PATIENT IS ORIENTED TO PERSON BUT DISPLAYS CONFUSION. PATIENT HAS HX OF DEMENTIA. PATIENT ADMITED WITH SEPSIS. WBC WAS TRENDING DOWN HOWEVER, WBC IS ELEVATED AGAIN AT 14.2, AFEBRILE. PATIENT HAD POSITIVE UTI ON ADMIT AND HAS BEEN CONVERTED TO P.O. CEFTIN. LIVE TRUCK OPERATOR REPORTED ISSUES WITH ILEOSTOMY LEAKING FREQUENTLY, REQUIRING MULTIPLE OSTOMY CHANGES DAILY. DURING ASSESSMENT, I NOTICED NO LEAKING AROUND OSTOMY SITE HOWEVER, LIQUID STOOL WAS NOTED IN [place]. EXCORIATION NOTE ONLY TO MIDLINE FROM [place]LLY[place] TO GROIN. ANGEL USED TO ABSORB LIQUID STOOL IN [place], A HOLE/FISTULA WAS NOTED. LIQUID CONTINUES TO SLOW DRIP FROM FISTULA. WHEN NURSING GENTLY PUSHES AROUND BELLY[place], STOOL IS NOTED FROM FISTULA. THIS HAS NOT BEEN PREVIOUSLY REPORTED, HOSPITALIST NOTIFIED OF DISCOVERY. ILEOSTOMY HAS MOD AMOUNTS OF FORMED, GREENISH STOOL IN BAG. WEISS TO DD WITH CLEAR YELLOW URINE NOTED. AM MEDS GIVEN CRUSHED IN PUDDING. PATIENT IS HUNGRY, BREAKFAST TRAY AT BEDSIDE. PATIENT TOLERATING MECH SOFT DIET. LEFT ARM PICC TO INT. PATIENT IS ON MRSA CONTACT. HEAD TO TOE ASSESSMENT COMPLETE. CALL LIGHT IN REACH. BED ALARM ON.
--- NOTE | 2020-02-18 08:30 | NUR ---
HOSPITALIST TEAM AT BEDSIDE. SEE SURGICAL CONSULT
--- NOTE | 2020-02-18 11:00 | NUR ---
PATIENT'S ILEOSTOMY IS LEAKING AROUND OSTOMY BAG AGAIN. PATIENT'S SKIN IS VERY EXCORIATED. PATIENT'S GOWN & BLANKETS ARE SOILED. PATIENT CLEANED UP, NEW OSTOMY WAFER & BAG PLACED USING PASTE. URINE DRAINAGE BAG APPLIED OVER UMBILICAL FISTULA. BARRIER CREAM APPLIED TO EXCORIATED ABD SKIN. WILL MONITOR
--- NOTE | 2020-02-18 13:52 | NUR ---
[employer] faxed updates to Javed at [facility] [employer]. SW contacted the patient's , Scott to introduce oneself and to follow up. Will continue to follow.
--- NOTE | 2020-02-18 19:01 | NUR ---
Received report from HAROLDO Teran. Pt currently sleeping in bed. Pt has her call light within reach and her bed is in lowest position.
--- NOTE | 2020-02-19 01:42 | NUR ---
Pt was able to take all her night time medications crushed in applesauce. Pt has not had any leakage around his stoma. Pt has her call light within reach and her bed is in lowest position.
[2020-02-19 04:00] VITALS: BP 122/66; PULSE 72; TEMP 97.8
[2020-02-19 04:48] LABS: BASO % 0.2 % (0.0-2.0); EOS # 0.2 (0.0-0.7); EOS % 1.7 % (0-4.0); GRAN # 8.9 (1.4-6.5); GRAN % 82.7 % (42.2-75.2); LYMPH # 0.8 (1.2-3.4); LYMPH % 7.6 % (20.0-51.0); MEAN CELL VOLUME 85 fl (80.0-100.0); MEAN CORPUSCULAR HGB CONC 33 g/dl (33.0-37.0); MEAN PLATELET VOLUME 9.1 fl (7.4-10.4); MONO # 0.8 (0.1-0.6); MONO % 7.3 % (1.7-9.3); PLATELET COUNT 179 K/mm3 (130-400); RED BLOOD COUNT 3.23 M/mm3 (4.10-5.30); REDCELL DISTRIBUTION WIDTH-CV 14.7 % (11.5-14.5)
[2020-02-19 04:49] LABS: HEMATOCRIT 27.6 % (37.0-47.0); MEAN CORPUSCULAR HEMOGLOBIN 28 pg (27.0-31.0)
[2020-02-19 04:56] LABS: CALCIUM 7.6 mg/dL (8.4-10.2); CREATININE, serum 1.14 (0.52-1.25); POTASSIUM 4.1 mmol/L (3.4-5.0)
--- NOTE | 2020-02-19 05:50 | NUR ---
Pt colostomy bag was taken off and changed at this time. Pt was cleaned and ostomy powder was applied to skin. Pt tolerated this well. The small bad applied to the fistula site was changed as well. Pt was repositioned and the dressing on her bottom was changed. There was a little drainage on the dressing. The area appeared to have redness and there are two small openings on her bottom. Pt is currently comfortable in bed. Pt also had a small skin tear on her left forearm, there is a non stick dressing and coban placed on pt arm at this time. Pt has her call light within reach and her bed is in lowest position and bed alarm is on.
--- NOTE | 2020-02-19 07:02 | NUR ---
Pt was changed because her ostomy bag was not closed completely. Pt bed pad was changed and pt was cleaned up. Pt is currently lying on her left side to releive pressure from her bottom. Pt has her call light within reach and her bed is in lowest position.
--- NOTE | 2020-02-19 08:00 | NUR ---
Patient in bed resting. Alert and oriented to self. Denies pain at this time. Mepilex to sacrum is CDI. PICC line to MINDI without complications. INT to right forarm noted. Eccymosis to BUE. Ostomy with appliance intact. Fistula noted to belly button with minimal drainage at this time. Heel protectors in place. Denies further needs at this time.
[2020-02-19 08:09] VITALS: BP 113/57; PULSE 74; TEMP 97.9
[2020-02-19] MEDS ORDERED: CEFTIN500 MG PO (08:56)
[2020-02-19] MEDS ORDERED: PRINCIPEN500 MG PO (08:56)
[2020-02-19] MEDS ORDERED: ANTI-DIARRHEAL2 MG PO (08:58)
--- NOTE | 2020-02-19 10:30 | NUR ---
Judd catheter discontinued per orders. Pericare provided.
[2020-02-19 12:09] VITALS: BP 113/57; PULSE 74; TEMP 97.9
[2020-02-19 12:33] VITALS: BP 114/66; PULSE 79; TEMP 98.4
--- NOTE | 2020-02-19 13:45 | NUR ---
The patient to discharge today, 02/18 back to [place] [facility]. ELHAM faxed discharge orders. The patient will be transported at 1500. ELHAM contacted the patient's , Scott to provide update and to present the IM form. He understood and gave SW persmission to sign on his behalf. Original was placed in the chart. There are no additional needs at this time.
--- NOTE | 2020-02-19 15:50 | NUR ---
Ostomy appliance changed prior to discharge. x2 assist to wheelchair. PICC line discontinued earlier this afternoon by picc team, site with gauze dressing is CDI. Denies further needs at this time. Attempted to call report to [facility].
== END 2020-02-19 15:57 | DRG 871 ==
LOC: COL.ER 07:23 → ICU 08:36 → SURG 02-16 15:29
PROVIDERS: Emergency Medicine; Internal Medicine Critical Care Medicine; Nurse Practitioner; Physician Assistant; ADMIT Hospitalist
DX: A41.51 Sepsis due to Escherichia coli [E. coli] (principal); R65.21 Severe sepsis with septic shock; N17.9 Acute kidney failure, unspecified; N39.0 Urinary tract infection, site not specified; E87.2 Acidosis; E87.1 Hypo-osmolality and hyponatremia; K90.9 Intestinal malabsorption, unspecified; E46 Unspecified protein-calorie malnutrition; E87.5 Hyperkalemia; E03.9 Hypothyroidism, unspecified; F03.90 Unspecified dementia, unspecified severity, without behavioral disturbance, psychotic disturbance, mood disturbance, and anxiety; Z66 Do not resuscitate; F32.9 Major depressive disorder, single episode, unspecified; I48.91 Unspecified atrial fibrillation; E87.6 Hypokalemia; Z90.49 Acquired absence of other specified parts of digestive tract; Z93.3 Colostomy status; Z90.710 Acquired absence of both cervix and uterus
CPT/HCPCS: 99223-AI; 99232-AI; 99233-AI; 99239; C1751; C1892; C9113; J0692; J1815; J3475; J7030; J7060